=== PATIENT | male | born 1980 | race Caucasian/White ===

== ENCOUNTER 2017-11-13 04:08 | Inpatient (IN) | payer OTHER ==
[2017-11-13] MEDS ORDERED: NACL 0.9% 1000 ML 1,000 ML ONE ×2 (04:28→11:41)
[2017-11-13] MEDS ORDERED: ZOFRAN IV ONE (04:29)
[2017-11-13] MEDS ORDERED: NACL 0.9% 1000 ML 1,000 ML IV ONE (04:29)
[2017-11-13] MEDS ORDERED: PROTONIX IV ONE (04:30)
[2017-11-13] MEDS ORDERED: PROTONIX PO ONE (04:33)
--- NOTE | 2017-11-13 04:35 | Emergency Department Report ---
ED GI Bleed HPI - General Chief complaint: GI Bleed Stated complaint: VOINTING BLOOD Time Seen by Provider: 11/13/17 04:29 Source: family Mode of arrival: Wheelchair Limitations: Language Barrier - History of Present Illness Initial comments: Patient is 37 years old male with history of diabetes presented to the ER with active GI bleed. Patient is actively vomiting blood. Patient stated that he was seen in [place] and diagnosed with stomach virus. Patient stated that he continued to vomit and is recently R vomiting blood, coffee ground emesis. He denied any rectal bleeding or stool color change. When arrived to the ER his initial blood pressure 93/38. MD complaint: coffee ground emesis -: Sudden Location: epigastric Radiation: none Consistency: constant Associated Symptoms: abdominal pain, nausea, vomiting - Related Data Home Medications Medication Instructions Recorded Confirmed Last Taken No Known Home Medications [No 11/13/17 11/13/17 Unknown Reported Home Medications] Allergies Allergy/AdvReac Type Severity Reaction Status Date / Time No Known Allergies Allergy Verified 11/13/17 04:31 ED Review of Systems ROS: Stated complaint: VOINTING BLOOD Other details as noted in HPI Comment: All other systems reviewed and negative Constitutional: denies: chills, fever Respiratory: denies: cough, orthopnea Cardiovascular: denies: chest pain, palpitations, dyspnea on exertion, orthopnea , paroxysmal nocturnal dyspnea Gastrointestinal: abdominal pain, nausea, vomiting, hematemesis. denies: diarrhea, constipation, melena, hematochezia Neurological: denies: headache, weakness, numbness, paresthesias, confusion, abnormal gait ED Past Medical Hx - Past Medical History Previous Medical History?: Yes Hx Diabetes: Yes - Surgical History Past Surgical History?: No - Social History Smoking Status: Never Smoker Substance Use Type: None - Medications Home Medications: Home Medications Medication Instructions Recorded Confirmed Last Taken Type No Known Home Medications [No 11/13/17 11/13/17 Unknown History Reported Home Medications] ED Physical Exam - General Limitations: Language Barrier General appearance: alert, obtunded - Head Head exam: Present: atraumatic, normocephalic - Eye Eye exam: Present: normal appearance, PERRL - ENT ENT exam: Present: mucous membranes dry - Neck Neck exam: Present: normal inspection, full ROM. Absent: tenderness, meningismus, lymphadenopathy, thyromegaly - Respiratory Respiratory exam: Present: normal lung sounds bilaterally. Absent: respiratory distress, wheezes, rales, rhonchi, chest wall tenderness, accessory muscle use, decreased breath sounds, prolonged expiratory - Cardiovascular Cardiovascular Exam: Present: tachycardia. Absent: systolic murmur, diastolic murmur - GI/Abdominal GI/Abdominal exam: Present: soft, tenderness (epigastric tenderness), normal bowel sounds. Absent: distended, guarding, rebound, rigid, organomegaly, mass, bruit, pulsatile mass, hernia - Extremities Exam Extremities exam: Present: normal inspection, full ROM, normal capillary refill. Absent: tenderness, pedal edema, joint swelling, calf tenderness - Neurological Exam Neurological exam: Present: alert, oriented X3, CN II-XII intact, normal gait - Skin Skin exam: Present: warm, dry, intact ED Course Vital Signs 11/13/17 11/13/17 11/13/17 04:08 04:25 04:38 Temperature 98.3 F 98.3 F Pulse Rate 104 H 104 H Respiratory 22 18 22 Rate Blood Pressure 93/38 93/38 O2 Sat by Pulse 100 100 100 Oximetry 11/13/17 11/13/17 11/13/17 04:50 05:01 05:15 Temperature Pulse Rate 95 H 100 H 95 H Respiratory 15 20 18 Rate Blood Pressure O2 Sat by Pulse 100 100 100 Oximetry 11/13/17 11/13/17 11/13/17 05:30 05:45 06:00 Temperature Pulse Rate 116 H 98 H 98 H Respiratory 16 17 19 Rate Blood Pressure 122/44 114/47 103/52 O2 Sat by Pulse 100 100 100 Oximetry 11/13/17 11/13/17 11/13/17 06:08 06:15 06:17 Temperature 98.1 F Pulse Rate 97 H 102 H 103 H Respiratory 17 19 19 Rate Blood Pressure 113/40 103/52 103/52 O2 Sat by Pulse 100 100 100 Oximetry 11/13/17 11/13/17 11/13/17 06:19 06:21 06:22 Temperature Pulse Rate 105 H 108 H 105 H Respiratory 20 20 20 Rate Blood Pressure 103/52 103/52 94/40 O2 Sat by Pulse 100 99 100 Oximetry 11/13/17 11/13/17 11/13/17 06:23 06:25 06:27 Temperature Pulse Rate 105 H 105 H 105 H Respiratory 19 20 20 Rate Blood Pressure 94/40 108/43 108/43 O2 Sat by Pulse 100 99 100 Oximetry 11/13/17 11/13/17 11/13/17 06:29 06:30 06:31 Temperature Pulse Rate 97 H 98 H 95 H Respiratory 20 20 21 Rate Blood Pressure 108/43 102/41 102/41 O2 Sat by Pulse 100 100 100 Oximetry 11/13/17 11/13/17 11/13/17 06:33 06:41 06:50 Temperature 98.4 F 98.3 F Pulse Rate 102 H 109 H 83 Respiratory 20 17 14 Rate Blood Pressure 102/41 109/44 105/49 O2 Sat by Pulse 100 100 99 Oximetry 11/13/17 11/13/17 11/13/17 07:23 07:38 07:39 Temperature 98.3 F Pulse Rate 130 H 126 H 114 H Respiratory 20 20 22 Rate Blood Pressure 134/59 128/61 122/79 O2 Sat by Pulse 96 99 Oximetry 11/13/17 11/13/17 11/13/17 08:00 08:31 09:00 Temperature Pulse Rate 102 H 55 L 99 H Respiratory 19 14 16 Rate Blood Pressure 108/64 128/49 111/56 O2 Sat by Pulse 100 100 99 Oximetry 11/13/17 11/13/17 11/13/17 09:30 10:00 10:30 Temperature Pulse Rate 97 H 101 H 96 H Respiratory 19 17 16 Rate Blood Pressure 108/54 117/58 109/54 O2 Sat by Pulse 100 Oximetry 11/13/17 11/13/17 11/13/17 11:00 11:30 12:00 Temperature Pulse Rate 99 H 100 H 114 H Respiratory 18 18 22 Rate Blood Pressure 106/55 99/53 106/52 O2 Sat by Pulse 100 Oximetry 11/13/17 11/13/17 11/13/17 12:30 13:00 13:30 Temperature Pulse Rate 100 H 99 H 103 H Respiratory 19 16 16 Rate Blood Pressure 106/60 105/55 101/60 O2 Sat by Pulse 100 100 100 Oximetry 11/13/17 11/13/17 11/13/17 14:00 14:30 15:00 Temperature Pulse Rate 98 H 100 H 105 H Respiratory 18 17 16 Rate Blood Pressure 100/58 106/50 96/51 O2 Sat by Pulse 98 100 Oximetry 11/13/17 11/13/17 11/13/17 15:31 16:00 16:30 Temperature Pulse Rate 100 H 98 H 107 H Respiratory 16 16 17 Rate Blood Pressure 103/59 103/60 107/58 O2 Sat by Pulse 100 99 96 Oximetry 11/13/17 11/13/17 11/13/17 17:00 17:11 17:21 Temperature Pulse Rate 85 89 100 H Respiratory 17 17 16 Rate Blood Pressure 113/53 106/40 99/45 O2 Sat by Pulse 100 99 88 Oximetry 11/13/17 11/13/17 11/13/17 17:30 17:40 17:50 Temperature Pulse Rate 81 76 80 Respiratory 18 16 16 Rate Blood Pressure 113/55 114/57 112/57 O2 Sat by Pulse 100 100 99 Oximetry 11/13/17 18:00 Temperature Pulse Rate 76 Respiratory 12 Rate Blood Pressure 111/59 O2 Sat by Pulse 100 Oximetry - Reevaluation(s) Reevaluation #1: 11/13/17 05:05: I discussed the patient is Dr. Hogan from GI, he was informed about the patient and his current hemoglobin and blood pressure. Dr. Hogan is on his way for emergency endoscopy. ED Medical Decision Making - Lab Data Result diagrams: 11/13/17 13:09 11/13/17 Unknown - Medical Decision Making I discussed the patient is Dr. Caro, he advised to admit patient to ICU. Critical Care Time: Yes Critical care time in (mins) excluding proc time.: 45 Critical care attestation.: If time is entered above; I have spent that time in minutes in the direct care of this critically ill patient, excluding procedure time. ED Disposition Clinical Impression: GI bleed, Hypotension due to blood loss Disposition: OP ADMIT IP TO THIS HOSP Is pt being admited?: Yes Condition: Stable
[2017-11-13 04:52] LABS: Basophils % (Auto) 0.4 % (0.0-1.8); Hemoglobin 6.2 gm/dl (11.8-15.2); Lymphocytes % (Auto) 15.2 % (13.4-35.0); Monocytes # (Auto) 0.6 K/mm3 (0.0-0.8); Monocytes % (Auto) 4.8 % (0.0-7.3)
[2017-11-13 05:04] LABS: INR 1.86 (0.87-1.13)
[2017-11-13] MEDS: PROTONIX 80 MG in NACL 0.9% 100 ML IV SCH ×2 (05:04→15:36)
[2017-11-13 05:05] LABS: Albumin 2.1 g/dL (3.9-5); Calcium 7.3 mg/dL (8.4-10.2); Partial Thromboplastin Time 36.3 Sec. (24.2-36.6)
[2017-11-13] MEDS ORDERED: NACL 0.9% 500 ML 500 ML IV ONE (05:05)
[2017-11-13 05:11] LABS: Hematocrit 23.3 % (35.5-45.6); Mean Corpuscular HGB Conc 29 % (32-34); Mean Corpuscular Hemoglobin 25 pg (28-32); Mean Corpuscular Volume 85 fl (84-94); Platelet Count 154 K/mm3 (140-440); Red Blood Count 2.73 M/mm3 (3.65-5.03); Red Cell Distribution Width 20.7 % (13.2-15.2)
[2017-11-13] MEDS ORDERED: VITAMIN K (ADULT ONLY) SUB-Q ONE (05:23)
--- NOTE | 2017-11-13 05:52 | XRay Report ---
FINAL REPORT EXAM: XR CHEST 1V AP HISTORY: GI Bleed. TECHNIQUE: A single frontal portable radiograph of the chest was obtained. No prior studies are available for comparison. FINDINGS: The cardiac silhouette and mediastinum are within normal limits. There are low lung volumes, with crowding of the vascular and interstitial markings. The lungs are clear bilaterally, without focal infiltrate or effusion. There is no pneumothorax. No significant osseous abnormalities are identified. IMPRESSION: Low lung volumes, with no focal infiltrate or effusion.
--- NOTE | 2017-11-13 06:03 | Anesthesia Consultation ---
Anesthesia Consult and Med Hx Date of service: 11/13/17 - Airway Anesthetic Teeth Evaluation: Good ROM Head & Neck: Adequate Mental/Hyoid Distance: Adequate Mallampati Class: Class III Intubation Access Assessment: Probably Good - Pulmonary Exam CTA: Yes - Cardiac Exam Cardiac Exam: RRR - Pre-Operative Health Status ASA Pre-Surgery Classification: ASA3 Proposed Anesthetic Plan: General, MAC - Pre-Anesthesia Comment Pre-Anesthesia Comments: 37y M with h/o recently diagnosed NIDDM2, who presented with bloody emesis and hypotension now scheduled for upper endoscopy. Hgb 6.2, Plt 154. KARLOS and Lactate of 10 - Pulmonary Hx Smoking: No Hx Asthma: No SOB: No - Cardiovascular System Hx Hypertension: No Hx Heart Attack/AMI: No Hx Angina: No - Central Nervous System Hx Seizures: No CVA: No - Endocrine Hx Liver Disease: No Hx Non-Insulin Dependent Diabetes: Yes
--- NOTE | 2017-11-13 06:04 | Anesthesia Day of Surgery ---
Anesthesia Day of Surgery - Day of Surgery Patient Examined: Yes Patient H&P Reviewed: Yes Patient is NPO: No (active GI bleed) Beta Blockers: No Cardiac Clearance: Yes Pulmonary Clearance: Yes Bryan's Test: N/A
[2017-11-13] MEDS ORDERED: VITAMIN K (ADULT ONLY) ONE (06:09)
[2017-11-13] MEDS ORDERED: WATER FOR IRRIG STERILE IR ONE (06:32)
[2017-11-13] MEDS ORDERED: DIPRIVAN 10 MG/ML IV ONE (06:35)
[2017-11-13] MEDS ORDERED: VERSED ONE (06:35)
[2017-11-13] MEDS ORDERED: AMIDATE IV ONE (06:35)
[2017-11-13] MEDS ORDERED: XYLOCAINE CARDIAC IV ONE (06:37)
[2017-11-13] MEDS ORDERED: SUBLIMAZE ONE (07:05)
[2017-11-13] MEDS ORDERED: NEOSTIGMINE ONE (07:19)
[2017-11-13] MEDS ORDERED: ROBINUL ONE (07:19)
--- NOTE | 2017-11-13 07:22 | History and Physical Report ---
History of Present Illness Date of examination: 11/13/17 Date of admission: 11/13/17 05:41 Chief complaint: Vomiting blood History of present illness: The patient is a 37 year old male with a history of DM who presented to the ER with new onset emesis of BRB starting this AM. He denied any antecedent history of PUD, liver disease, abdominal pain or weight loss. He states that he used to drink beer off and on but he quit drinking once he developed an episode of bloody vomitus about 2 months ago. Patient did not seek any medical attention that time. He lives in [place] and visiting friends/ family in [place]. He was hypotensive on presentation and found to have a Hgb of 6.2, INR of 1.8 with mildly elevated LFTs. No history of melena. He is getting admitted for further evaluation and management. He'll be taking to the GI lab for emergent EGD. Past History Past Medical History: diabetes Past Surgical History: No surgical history Social history: no significant social history. denies: smoking, admits alcohol abuse but states he quit about 2 months ago Family history: Mother has history of hypertension and diabetes Review of System: Constitutional: no fever, no chills, no weight loss Ears, eyes, nose, mouth and throat: no nasal congestion, no nasal discharge, no sinus pressure, no vision change, no red eye. Neck: No neck pain or rigidity. Cardiovascular: No chest pain, no orthopnea, no palpitations, no leg swelling Respiratory: No shortness of breath, no cough, no congestion, no wheezing Gastrointestinal: no abdominal pain, + nausea, + bloody vomiting Genitourinary : no dysuria, no hematuria Musculoskeletal: no joint swelling or muscle ache Integumentary: no rash, no pruritis Neurological: no parathesias, no numbness, no tingling Endocrine: no cold or heat intolerance, no polyuria or polydipsia Hematologic/Lymphatic: no easy bruising, no easy bleeding, no gland swelling Allergic/Immunologic: no urticaria, no angioedema. Medications and Allergies Allergies Allergy/AdvReac Type Severity Reaction Status Date / Time No Known Allergies Allergy Verified 11/13/17 04:31 Home Medications Medication Instructions Recorded Confirmed Last Taken Type No Known Home Medications [No 11/13/17 11/13/17 Unknown History Reported Home Medications] Active Meds: Active Medications Pantoprazole Sodium 80 mg/ (Sodium Chloride) 100 mls @ 10 mls/hr IV Q10H KATHRYN Last Admin: 11/13/17 05:04 Dose: 8 mg/hr, 10 mls/hr Octreotide Acetate 500 mcg/ (Sodium Chloride) 101 mls @ 5.05 mls/hr IV TITR KATHRYN ; Protocol Exam - Physical Exam Narrative exam: GENERAL: well-developed and well-nourished male lying on bed appeared to be in no discomfort. HEENT: Normocephalic. Atraumatic. No conjunctival congestion or icterus. Patient has moist mucous membranes. NECK: Supple. Trachea midline. CHEST/LUNGS: Clear to auscultated bilaterally, breathing nonlabored. No wheezes crackles or rhonchi. HEART/CARDIOVASCULAR: Regular in rate and rhythm. S1 and S2 positive. ABDOMEN: Abdomen is soft, nontender. Patient has normal bowel sounds. SKIN: There is no rash. Warm and dry. NEURO: No focal motor deficit. Follows command. MUSCULOSKELETAL: No joint effusion or tenderness. EXTRIMITY: No edema, no cyanosis or clubbing. PSYCH: Cooperative. - Constitutional Vitals: Temp Pulse Resp BP Pulse Ox 98.4 F 109 H 17 109/44 100 11/13/17 06:41 11/13/17 06:41 11/13/17 06:41 11/13/17 06:41 11/13/17 06:41 Results - Labs CBC & Chem 7: 11/13/17 13:09 11/13/17 Unknown Labs: Abnormal lab results 11/13/17 11/13/17 11/13/17 Range/Units 04:20 04:20 Unknown WBC 12.9 H (4.5-11.0) K/mm3 RBC 2.73 L (3.65-5.03) M/mm3 Hgb 6.2 L (11.8-15.2) gm/dl Hct 23.3 L (35.5-45.6) % MCH 25 L (28-32) pg MCHC 29 L (32-34) % RDW 20.7 H (13.2-15.2) % Seg Neutrophils % 79.6 H (40.0-70.0) % Seg Neutrophils # 10.2 H (1.8-7.7) K/mm3 PT 22.6 H (12.2-14.9) Sec. INR 1.86 H (0.87-1.13) Sodium (137-145) mmol/L Potassium (3.6-5.0) mmol/L Carbon Dioxide (22-30) mmol/L BUN (9-20) mg/dL Creatinine (0.8-1.5) mg/dL Glucose (75-100) mg/dL Lactic Acid (0.7-2.0) mmol/L Calcium (8.4-10.2) mg/dL AST (5-40) units/L ALT (7-56) units/L Alkaline Phosphatase (35-129) units/L Total Protein (6.3-8.2) g/dL Albumin (3.9-5) g/dL Crossmatch See Detail 11/13/17 11/13/17 Range/Units Unknown Unknown WBC (4.5-11.0) K/mm3 RBC (3.65-5.03) M/mm3 Hgb (11.8-15.2) gm/dl Hct (35.5-45.6) % MCH (28-32) pg MCHC (32-34) % RDW (13.2-15.2) % Seg Neutrophils % (40.0-70.0) % Seg Neutrophils # (1.8-7.7) K/mm3 PT (12.2-14.9) Sec. INR (0.87-1.13) Sodium 133 L (137-145) mmol/L Potassium 5.1 H (3.6-5.0) mmol/L Carbon Dioxide 13 L (22-30) mmol/L BUN 34 H (9-20) mg/dL Creatinine 1.8 H (0.8-1.5) mg/dL Glucose 240 H (75-100) mg/dL Lactic Acid 10.30 H* (0.7-2.0) mmol/L Calcium 7.3 L (8.4-10.2) mg/dL AST 69 H (5-40) units/L ALT 69 H (7-56) units/L Alkaline Phosphatase 141 H (35-129) units/L Total Protein 5.7 L (6.3-8.2) g/dL Albumin 2.1 L (3.9-5) g/dL Crossmatch - Imaging and Cardiology Chest x-ray: report reviewed (no acute infiltrates) Assessment and Plan Acute GI bleed - Likely from esophageal varices versus peptic ulcer disease - Patient is going to get EGD emergently, consulted GI - We'll monitor H&H every 8 hour - Continue IV fluid hydration and packed RBC transfusion - We'll continue on octreotide drip and Protonix drip Acute blood loss anemia - Hemoglobin 6.5 on admission - We'll transfuse 2 units of packed RBC - For now will monitor the patient in ICU Remote history of alcohol abuse - We'll place on folate and thiamine Diabetes mellitus type 2 - We'll continue sliding scale of insulin for now, we'll check A1c Acute renal failure, could be vasomotor nephropathy - Continue gentle hydration for now - Monitor renal function, mild right upper toxin, consult nephrology Hyperkalemia, likely from renal failure - We'll repeat BMP, a persistently elevated will order hyperkalemia cocktail Elevated LFT - Could be from history of alcohol abuse - Hepatic panel ordered this morning was normal DVT prophylaxis, with SCD The high probability of a clinically significant, sudden or life threatening deterioration of the system(s) required my full and direct attention, intervention and personal management. The aggregate critical care time was [45] minutes. This time is in addition to time spent performing reported procedures but includes the following: [x] Data Review and interpretation [x] Patient assessment and monitoring of vital signs [x] Documentation [x] Medication orders and management
--- NOTE | 2017-11-13 07:26 | Gastroenterology Consultation ---
History of Present Illness - Reason for Consult Consult date: 11/13/17 Massive UGI bleed Requesting physician: ROSA JANE - History of Present Illness The patient is a 37 year old male with a history of DM who presented to the ER with new onset emesis of BRB starting this AM. He denied any antecedent history of PUD, liver disease, prior bleeding, alcohol use, abdominal pain or weight loss. He was hypotensive on presentation and found to have a Hgb of 6.2, INR of 1.8 with mildly elevated LFTs. No history of melena. Past History Past Medical History: diabetes Past Surgical History: No surgical history Social history: no significant social history. denies: smoking, alcohol abuse Family history: no significant family history Medications and Allergies Allergies Allergy/AdvReac Type Severity Reaction Status Date / Time No Known Allergies Allergy Verified 11/13/17 04:31 Active Meds: Active Medications Pantoprazole Sodium 80 mg/ (Sodium Chloride) 100 mls @ 10 mls/hr IV Q10H KATHRYN Last Admin: 11/13/17 05:04 Dose: 8 mg/hr, 10 mls/hr Octreotide Acetate 500 mcg/ (Sodium Chloride) 101 mls @ 5.05 mls/hr IV TITR KATHRYN ; Protocol Review of Systems - Review of Systems Constitutional: no weight loss, no weight gain, no fever, no chills Eyes: no change in vision Ears, Nose, Throat: no decreased hearing, no difficulty swallowing, no epistaxis Breasts: deferred Cardiovascular: no chest pain, no rapid/irregular heart beat, no shortness of breath, no syncope Respiratory: no cough, no shortness of breath, no wheezing Gastrointestinal: nausea, vomiting, hematemesis, no abdominal pain, no diarrhea , no constipation, no BRBPR, no melena, no hematochezia, no jaundice Rectal: no pain Male Genitourinary: deferred Musculoskeletal: no gait dysfunction, no joint pain, no muscle pain Integumentary: no deferred, no rash, no pruritis, no jaundice Neurological: no paralysis, no weakness Psychiatric: no anxiety Endocrine: no cold intolerance, no heat intolerance Hematologic/Lymphatic: no easy bruising, no easy bleeding Allergic/Immunologic: no wheezing Exam - Constitutional Vital Signs: Temp Pulse Resp BP Pulse Ox 98.4 F 109 H 17 109/44 100 11/13/17 06:41 11/13/17 06:41 11/13/17 06:41 11/13/17 06:41 11/13/17 06:41 General appearance: no acute distress, well-nourished, other (mildly somnolent but arousable and answers appropriately) - EENT Eyes: PERRL ENT: hearing intact, clear oral mucosa, dentition normal - Neck Neck: supple, normal ROM, no masses or JVD - Respiratory Respiratory effort: normal Respiratory: bilateral: CTA - Breasts Breasts: deferred - Cardiovascular Rhythm: regular Heart Sounds: Present: S1 & S2. Absent: gallop, rub Extremities: pulses intact, No edema, normal color, Full ROM - Gastrointestinal General gastrointestinal: Present: soft, non-tender, non-distended, normal bowel sounds. Absent: hepatomegaly, splenomegaly, mass Rectal Exam: deferred - Genitourinary Male Genitourinary: deferred - Integumentary Integumentary: Present: clear, warm, dry - Musculoskeletal Musculoskeletal: normal - Neurologic Neurological: alert and oriented x3, strength equal bilaterally - Psychiatric Psychiatric: appropriate mood/affect - Labs CBC & Chem 7: 11/13/17 04:20 11/13/17 Unknown Lab Results: Laboratory Results - last 24 hr 11/13/17 11/13/17 11/13/17 04:20 04:20 Unknown WBC 12.9 H RBC 2.73 L Hgb 6.2 L Hct 23.3 L MCV 85 MCH 25 L MCHC 29 L RDW 20.7 H Plt Count 154 Lymph % (Auto) 15.2 [place] % (Auto) 4.8 Eos % (Auto) 0.0 Baso % (Auto) 0.4 Lymph # 2.0 B[place] # 0.6 Eos # 0.0 Baso # 0.0 Seg Neutrophils % 79.6 H Seg Neutrophils # 10.2 H PT 22.6 H INR 1.86 H APTT 36.3 Sodium Potassium Chloride Carbon Dioxide Anion Gap BUN Creatinine Estimated GFR BUN/Creatinine Ratio Glucose Lactic Acid Calcium Total Bilirubin AST ALT Alkaline Phosphatase Total Protein Albumin Albumin/Globulin Ratio Lipase Blood Type O POSITIVE Antibody Screen Negative Crossmatch See Detail 11/13/17 11/13/17 Unknown Unknown WBC RBC Hgb Hct MCV MCH MCHC RDW Plt Count Lymph % (Auto) B[place] % (Auto) Eos % (Auto) Baso % (Auto) Lymph # Benton # Eos # Baso # Seg Neutrophils % Seg Neutrophils # PT INR APTT Sodium 133 L Potassium 5.1 H Chloride 99.3 Carbon Dioxide 13 L Anion Gap 26 BUN 34 H Creatinine 1.8 H Estimated GFR 43 BUN/Creatinine Ratio 19 Glucose 240 H Lactic Acid 10.30 H* Calcium 7.3 L Total Bilirubin 0.90 AST 69 H ALT 69 H Alkaline Phosphatase 141 H Total Protein 5.7 L Albumin 2.1 L Albumin/Globulin Ratio 0.6 Lipase 57 Blood Type Antibody Screen Crossmatch Assessment and Plan - Patient Problems (1) Coagulopathy Current Visit: Yes Status: Acute (2) GI bleed Current Visit: Yes Status: Acute Plan to address problem: Acute massive UGI bleed is present. Would be concerned about liver disease and a variceal bleed in this setting. Rule out PUD, Agata Sanchez tear, vascular lesions, eg Dieulafoy's. Emergent endoscopy in the OR with intubation is planned. I requested an octreotide drip be started as well as transfusions in advance of endoscopy. Thank you for asking me to participate in his care. (3) Hypotension due to blood loss Current Visit: Yes Status: Acute
[2017-11-13] MEDS ORDERED: QUELICIN ONE (07:30)
--- NOTE | 2017-11-13 07:42 | Operative Report ---
Operative Report Operative Report: Date of procedure: 11/13/2017 Procedure: Esophagogastroduodenoscopy with banding of esophageal varices 7 Preprocedure diagnosis: Massive upper GI bleed. Coagulopathy and elevated liver enzymes suspicious for cirrhosis. Post procedure diagnosis: Large esophageal varices with 1 varix with a tiny ulcer at the esophagogastric junction. Large cluster of gastric varices at the cardia. Portal hypertension gastropathy. Endoscopist: Dr. Tony Anesthesia: Gen. endotracheal anesthesia care per anesthesia department Medications: Propofol per anesthesia Estimated blood loss: 0 After careful discussion of the nature and purpose of the procedure as well as details the technique risks benefits and alternatives consent was obtained. The patient was placed in the left lateral decubitus position and medicated per anesthesia. The tip of the DynaPump EQ 570 video scope was passed per orum under direct vision into the esophagus and advanced into the stomach and descending duodenum. The descending duodenum the duodenal bulb and pylorus were symmetrical and normal. The scope was withdrawn into the stomach and the stomach then gently insufflated with air. The antrum was normal. The stomach was further insufflated and the scope was then retroflexed and partially withdrawn. The cardia, fundus, and body of the stomach were easily distensible.there was vascular congestion in the proximal stomach and a large cluster of varices at the cardia encompassing approximately 50% of the circumference. The scope was then withdrawn in the forward position. The esophagogastric junction was at 40 cm] 3-4+ varices were present in the distal half of the esophagus. A small ulcer was noted on the large varix present at the esophagogastric junction and this was felt to be suspicious for the bleeding point. There was no active bleeding however at the time of observation. The scope was transiently withdrawn and the banding device then loaded. The scope was then reintroduced per orum under direct vision into the esophagus and advanced to the esophagogastric junction. The varix with stigmata of bleeding was banded first followed by successive banding from EG junction to lower third of the esophagus with 7 bands overall. No bleeding was incurred. The procedure was was well tolerated and the patient was observed in recovery. Impressions: Large esophageal varices one with stigmata of bleeding. Multiple bands placed, 7 in total. Large cluster of varices at the gastric cardia. Portal hypertension gastropathy. Plan: Octreotide drip, ICU observation, PPI drip empirically. Evaluate the etiology of cirrhosis. Electronically signed: Guido Tony MD
[2017-11-13] MEDS ORDERED: NACL 0.9% 1000 ML 1,000 ML IV SCH (08:00)
[2017-11-13] MEDS: SandoSTATIN 500 MCG in NACL 0.9% 100 ML IV SCH ×2 (08:41→23:46)
--- NOTE | 2017-11-13 10:50 | Consultation ---
History of Present Illness - Reason for Consult Consult date: 11/13/17 acute renal failure, hyperkalemia, metabolic acidosis - History of Present Illness The patient is a 37 year old HM with history significant for DM type 2 who presented to the ER with h/o vomiting blood. Patient started vomiting when he started driving from [place], [place]. He continues to vomit even after reached [place]. Initially the vomitus partially digested food but later he noticed bright red blood. He had an episode of bloody vomitus about 2 months ago. He used to drink beer off and on but quit 1-2 months ago. On presentation his BP was 93/38, creatinine 1.8, bicarb 13, Lactate 10.3, Hb of 6.2, INR of 1.8 with mildly elevated LFTs. He denied any h/o PUD, Liver disease, Hepatitis, abdominal pain, melena, blood in the stool, hematuria, dysuria, kidney stone or syncope. Patient spoke very little Italian and history was obtained the foreign language interpreter. Past History Past Medical History: No medical history, diabetes Past Surgical History: No surgical history Social history: no significant social history. denies: smoking, alcohol abuse Family history: no significant family history Medications and Allergies Allergies Allergy/AdvReac Type Severity Reaction Status Date / Time No Known Allergies Allergy Verified 11/13/17 04:31 Home Medications Medication Instructions Recorded Confirmed Last Taken Type No Known Home Medications [No 11/13/17 11/13/17 Unknown History Reported Home Medications] Active Meds: Active Medications Pantoprazole Sodium 80 mg/ (Sodium Chloride) 100 mls @ 10 mls/hr IV Q10H KATHRYN Last Admin: 11/13/17 05:04 Dose: 8 mg/hr, 10 mls/hr Octreotide Acetate 500 mcg/ (Sodium Chloride) 101 mls @ 5.05 mls/hr IV TITR KATHRYN ; Protocol Last Admin: 11/13/17 08:41 Dose: 25 mcg/hr, 5.05 mls/hr Sodium Chloride (Nacl 0.9% 1000 Ml) 1,000 mls @ 100 mls/hr IV DIRECT KATHRYN Review of Systems Constitutional: no weight loss, no weight gain, no fever, no anorexia, no weakness Ears, nose, mouth and throat: no epistaxis Cardiovascular: no chest pain, no orthopnea, no edema, no syncope, no lightheadedness, no high blood pressure, no leg edema Respiratory: no cough, no hemoptysis, no shortness of breath Gastrointestinal: nausea, vomiting, hematemesis, no abdominal pain, no diarrhea , no melena, no jaundice Genitourinary Male: no dysuria, no hematuria, no kidney stones Integumentary: no rash, no jaundice Neurological: no paralysis, no weakness Exam - Vital Signs Vital signs: Vital Signs Temp Pulse Resp BP Pulse Ox 98.3 F 104 H 22 93/38 100 11/13/17 04:08 11/13/17 04:08 11/13/17 04:08 11/13/17 04:08 11/13/17 04:08 - General Appearance General appearance: well-developed, well-nourished, appears stated age, other ( no distress) EENT: ATNC, PERRL, mucous membranes dry, hearing intact, vision intact Neck: Present: neck supple, trachea midline Respiratory: Clear to Ascultation Heart: regular, S1S2 Gastrointestinal: Present: normoactive bowel sounds, distended. Absent: tenderness Integumentary: no rash, warm and dry Neurologic: no focal deficit, no asterixis, alert and oriented x3 Musculoskeletal: Present: other (no edema) Psychiatric: cooperative Results - Lab Results 11/14/17 04:45 11/14/17 04:45 Most recent lab results Calcium 7.3 mg/dL (8.4-10.2) L 11/13/17 Unknown - Image Kidney/bladder ultrasound: other Assessment and Plan 1. Acute kidney injury: Hemodynamic / Vasomotor KARLOS in the setting of volume depletion and hypotension. Continue IV fluids. Urine studies and Renal US ordered. 2. Hyperkalemia: Continue D5 NS. Monitor. 3. Volume depletion: Continue IV fluids. 4. Cirrhosis with variceal bleed: S/p banding. 5. Anemia: Serial H/H. D/w family members and answered all the questions.
[2017-11-13 13:26] LABS: Hematocrit 23.8 % (35.5-45.6); Hemoglobin 7.5 gm/dl (11.8-15.2); Mean Corpuscular HGB Conc 31 % (32-34); Mean Corpuscular Hemoglobin 27 pg (28-32); Mean Corpuscular Volume 86 fl (84-94); Platelet Count 109 K/mm3 (140-440); Red Blood Count 2.78 M/mm3 (3.65-5.03); Red Cell Distribution Width 19.2 % (13.2-15.2)
[2017-11-13] MEDS ORDERED: TYLENOL PR PRN (15:14)
[2017-11-13] MEDS ORDERED: D5W/0.45% NACL/KCL 20 MEQ 20 MEQ/1,000 ML BAG IV ONE (15:25)
[2017-11-13 15:31] LABS: Calcium 6.7 mg/dL (8.4-10.2)
[2017-11-13] MEDS ORDERED: D5W/NS W/KCL 20MEQ 20 MEQ/1,000 ML BAG IV SCH (17:00)
[2017-11-13] MEDS ORDERED: HumuLIN R ONE (17:11)
[2017-11-13] MEDS: HumuLIN R SUB-Q SCH (17:21)
[2017-11-13] MEDS ORDERED: D5W 0 ML IV ONE (17:51)
[2017-11-13 18:28] LABS: Bacteria,Urine 1+ /HPF (Negative); Bilirubin,Urine NEG (Negative); Blood,Urine NEG (Negative); Color,Urine Yellow (Yellow); Mucus,Urine FEW /HPF; Protein,Urine <15 mg/dL mg/dL (Negative); Urobilinogen,Urine < 2.0 mg/dL (<2.0)
--- NOTE | 2017-11-13 18:31 | Event Note ---
Date: 11/13/17 Rn reported that pt did not have any urine output - will place huffman and cont iv fluid repeat K level is 5.5 - will place on insulin 10 unit/50ml D50/ 2gm calcium gluconate/1 amp NaHCO3
[2017-11-13] MEDS: D5NS 1,000 ML IV SCH ×2 (18:41→23:49)
[2017-11-13 18:44] LABS: Creatinine,Urine 273.6 mg/dL (0.1-20.0)
[2017-11-13] MEDS ORDERED: SODIUM BICARBONATE IV ONE (19:00)
[2017-11-13] MEDS ORDERED: PROVENTIL IH ONE (19:00)
[2017-11-13] MEDS ORDERED: D50W (25GM) Syringe IV ONE (19:00)
[2017-11-13] MEDS ORDERED: HumuLIN R SUB-Q ONE (19:00)
[2017-11-13] MEDS ORDERED: CALCIUM GLUCONATE 2,000 MG in NACL 0.9% 100 ML IV ONE (19:26)
[2017-11-13 21:51] LABS: Hematocrit 22.7 % (35.5-45.6); Hemoglobin 7.3 gm/dl (11.8-15.2)
[2017-11-14] MEDS: HumuLIN R SUB-Q SCH ×5 (00:27→22:06)
[2017-11-14] MEDS: PROTONIX 80 MG in NACL 0.9% 100 ML IV SCH (00:44)
[2017-11-14 05:22] LABS: Basophils # (Auto) 0.1 K/mm3 (0.0-0.1); Basophils % (Auto) 0.7 % (0.0-1.8); Eosinophils % (Auto) 0.1 % (0.0-4.3); Hematocrit 22.2 % (35.5-45.6); Hemoglobin 7.1 gm/dl (11.8-15.2); Lymphocytes # (Auto) 1.5 K/mm3 (1.2-5.4); Lymphocytes % (Auto) 10.8 % (13.4-35.0); Mean Corpuscular HGB Conc 32 % (32-34); Mean Corpuscular Hemoglobin 27 pg (28-32); Mean Corpuscular Volume 84 fl (84-94); Monocytes # (Auto) 1.2 K/mm3 (0.0-0.8); Monocytes % (Auto) 8.4 % (0.0-7.3); Red Blood Count 2.63 M/mm3 (3.65-5.03); Red Cell Distribution Width 19.5 % (13.2-15.2)
[2017-11-14 05:41] LABS: Platelet Count 88 K/mm3 (140-440)
[2017-11-14 05:49] LABS: Alanine Aminotransferase 123 units/L (7-56); Albumin 1.8 g/dL (3.9-5); BUN/Creatinine Ratio 33; Blood Urea Nitrogen 40 mg/dL (9-20); Calcium 6.5 mg/dL (8.4-10.2); Hemolysis Index 2
--- NOTE | 2017-11-14 08:49 | Progress Note ---
Assessment and Plan 1. Acute kidney injury: Hemodynamic / Vasomotor KARLOS in the setting of volume depletion and hypotension. Renal function is improving. Continue IV fluids. Renal US pending. 2. Hyperkalemia: Improving. Continue D5 NS. Monitor. 3. Volume depletion: Continue IV fluids. 4. Lactic acidosis: Improving. 5. Cirrhosis with variceal bleed: S/p banding. 6. Anemia: Monitor. Subjective Date of service: 11/14/17 Interval history: Patient was seen and examined at the bedside. Objective - Vital Signs Vital signs: Vital Signs - 12hr 11/13/17 11/13/17 11/13/17 20:57 21:00 21:11 Temperature Pulse Rate 93 H 93 H 96 H Pulse Rate [ Bilateral Throughout] Pulse Rate [ Left Radial] Pulse Rate [ Right Radial] Respiratory 16 17 12 Rate Respiratory Rate [Abdomen] Respiratory Rate [Bilateral Throughout] Blood Pressure 114/60 114/60 O2 Sat by Pulse 98 100 99 Oximetry 11/13/17 11/13/17 11/13/17 21:21 21:31 21:41 Temperature Pulse Rate 83 92 H 100 H Pulse Rate [ 102 H Bilateral Throughout] Pulse Rate [ Left Radial] Pulse Rate [ Right Radial] Respiratory 14 19 14 Rate Respiratory Rate [Abdomen] Respiratory 16 Rate [Bilateral Throughout] Blood Pressure 114/60 114/60 114/60 O2 Sat by Pulse 99 99 99 Oximetry 11/13/17 11/13/17 11/13/17 21:51 22:00 22:11 Temperature Pulse Rate 85 114 H 99 H Pulse Rate [ Bilateral Throughout] Pulse Rate [ 99 H Left Radial] Pulse Rate [ 99 H Right Radial] Respiratory 19 18 18 Rate Respiratory 16 Rate [Abdomen] Respiratory Rate [Bilateral Throughout] Blood Pressure 114/60 112/89 112/89 O2 Sat by Pulse 98 91 98 Oximetry 11/13/17 11/13/17 11/13/17 22:21 22:31 22:41 Temperature Pulse Rate 98 H 93 H 114 H Pulse Rate [ Bilateral Throughout] Pulse Rate [ Left Radial] Pulse Rate [ Right Radial] Respiratory 17 19 19 Rate Respiratory Rate [Abdomen] Respiratory Rate [Bilateral Throughout] Blood Pressure 112/89 112/89 112/89 O2 Sat by Pulse 97 97 98 Oximetry 11/13/17 11/13/17 11/13/17 22:51 23:00 23:11 Temperature Pulse Rate 104 H 97 H 98 H Pulse Rate [ Bilateral Throughout] Pulse Rate [ Left Radial] Pulse Rate [ Right Radial] Respiratory 19 19 17 Rate Respiratory Rate [Abdomen] Respiratory Rate [Bilateral Throughout] Blood Pressure 112/89 114/62 114/62 O2 Sat by Pulse 99 100 97 Oximetry 11/13/17 11/13/17 11/13/17 23:21 23:23 23:26 Temperature 97.7 F Pulse Rate 103 H 108 H Pulse Rate [ Bilateral Throughout] Pulse Rate [ Left Radial] Pulse Rate [ Right Radial] Respiratory 19 20 Rate Respiratory Rate [Abdomen] Respiratory Rate [Bilateral Throughout] Blood Pressure 114/62 114/62 114/62 O2 Sat by Pulse 98 97 Oximetry 11/13/17 11/13/17 11/13/17 23:31 23:41 23:51 Temperature Pulse Rate 101 H 103 H 124 H Pulse Rate [ Bilateral Throughout] Pulse Rate [ 103 H Left Radial] Pulse Rate [ 103 H Right Radial] Respiratory 17 18 19 Rate Respiratory Rate [Abdomen] Respiratory Rate [Bilateral Throughout] Blood Pressure 114/62 114/62 114/62 O2 Sat by Pulse 96 98 97 Oximetry 11/14/17 11/14/17 11/14/17 00:00 00:11 00:21 Temperature 98.3 F Pulse Rate 98 H 104 H 105 H Pulse Rate [ Bilateral Throughout] Pulse Rate [ Left Radial] Pulse Rate [ Right Radial] Respiratory 18 20 18 Rate Respiratory Rate [Abdomen] Respiratory Rate [Bilateral Throughout] Blood Pressure 119/63 119/63 119/63 O2 Sat by Pulse 97 99 Oximetry 11/14/17 11/14/17 11/14/17 00:31 00:41 00:50 Temperature Pulse Rate 123 H 113 H 126 H Pulse Rate [ Bilateral Throughout] Pulse Rate [ Left Radial] Pulse Rate [ Right Radial] Respiratory 20 19 18 Rate Respiratory Rate [Abdomen] Respiratory Rate [Bilateral Throughout] Blood Pressure 119/63 119/63 O2 Sat by Pulse 99 98 97 Oximetry 11/14/17 11/14/17 11/14/17 01:00 01:11 01:21 Temperature Pulse Rate 110 H 110 H 107 H Pulse Rate [ Bilateral Throughout] Pulse Rate [ Left Radial] Pulse Rate [ Right Radial] Respiratory 20 20 22 Rate Respiratory Rate [Abdomen] Respiratory Rate [Bilateral Throughout] Blood Pressure 116/63 119/63 119/63 O2 Sat by Pulse 98 97 97 Oximetry 11/14/17 11/14/17 11/14/17 01:31 01:41 01:51 Temperature Pulse Rate 111 H 113 H 114 H Pulse Rate [ Bilateral Throughout] Pulse Rate [ Left Radial] Pulse Rate [ Right Radial] Respiratory 21 21 16 Rate Respiratory Rate [Abdomen] Respiratory Rate [Bilateral Throughout] Blood Pressure 119/63 119/63 119/63 O2 Sat by Pulse 98 98 98 Oximetry 11/14/17 11/14/17 11/14/17 02:00 02:11 02:21 Temperature Pulse Rate 120 H 119 H 112 H Pulse Rate [ Bilateral Throughout] Pulse Rate [ 120 H Left Radial] Pulse Rate [ 120 H Right Radial] Respiratory 22 19 15 Rate Respiratory Rate [Abdomen] Respiratory Rate [Bilateral Throughout] Blood Pressure 106/41 106/41 106/41 O2 Sat by Pulse 98 95 97 Oximetry 11/14/17 11/14/17 11/14/17 02:31 02:41 02:51 Temperature Pulse Rate 111 H 109 H 115 H Pulse Rate [ Bilateral Throughout] Pulse Rate [ Left Radial] Pulse Rate [ Right Radial] Respiratory 23 18 21 Rate Respiratory Rate [Abdomen] Respiratory Rate [Bilateral Throughout] Blood Pressure 106/41 106/41 106/41 O2 Sat by Pulse 98 97 96 Oximetry 11/14/17 11/14/17 11/14/17 03:00 03:11 03:21 Temperature Pulse Rate 111 H 114 H 106 H Pulse Rate [ Bilateral Throughout] Pulse Rate [ Left Radial] Pulse Rate [ Right Radial] Respiratory 20 22 21 Rate Respiratory Rate [Abdomen] Respiratory Rate [Bilateral Throughout] Blood Pressure 104/56 104/56 104/56 O2 Sat by Pulse 96 97 Oximetry 11/14/17 11/14/17 11/14/17 03:31 03:41 03:51 Temperature Pulse Rate 111 H 118 H 112 H Pulse Rate [ Bilateral Throughout] Pulse Rate [ Left Radial] Pulse Rate [ Right Radial] Respiratory 20 21 19 Rate Respiratory Rate [Abdomen] Respiratory Rate [Bilateral Throughout] Blood Pressure 104/56 104/56 104/56 O2 Sat by Pulse 93 91 94 Oximetry 11/14/17 11/14/17 11/14/17 04:00 04:11 04:21 Temperature 99.0 F Pulse Rate 110 H 108 H 111 H Pulse Rate [ Bilateral Throughout] Pulse Rate [ 103 H Left Radial] Pulse Rate [ 103 H Right Radial] Respiratory 19 20 17 Rate Respiratory Rate [Abdomen] Respiratory Rate [Bilateral Throughout] Blood Pressure 106/48 106/48 106/48 O2 Sat by Pulse 97 96 95 Oximetry 11/14/17 11/14/17 11/14/17 04:31 04:41 04:51 Temperature Pulse Rate 119 H 122 H 107 H Pulse Rate [ Bilateral Throughout] Pulse Rate [ Left Radial] Pulse Rate [ Right Radial] Respiratory 23 18 15 Rate Respiratory Rate [Abdomen] Respiratory Rate [Bilateral Throughout] Blood Pressure 106/48 106/48 106/48 O2 Sat by Pulse 96 95 97 Oximetry 11/14/17 11/14/17 11/14/17 05:00 05:11 05:21 Temperature Pulse Rate 100 H 125 H 109 H Pulse Rate [ Bilateral Throughout] Pulse Rate [ Left Radial] Pulse Rate [ Right Radial] Respiratory 18 21 21 Rate Respiratory Rate [Abdomen] Respiratory Rate [Bilateral Throughout] Blood Pressure 105/52 105/52 105/52 O2 Sat by Pulse 96 91 96 Oximetry 11/14/17 11/14/17 11/14/17 05:31 05:41 05:49 Temperature Pulse Rate 101 H 105 H Pulse Rate [ Bilateral Throughout] Pulse Rate [ 99 H Left Radial] Pulse Rate [ 99 H Right Radial] Respiratory 19 18 20 Rate Respiratory Rate [Abdomen] Respiratory Rate [Bilateral Throughout] Blood Pressure 105/52 105/52 O2 Sat by Pulse 89 99 Oximetry - General Appearance General appearance: well-developed, well-nourished, appears stated age, other ( no distress) EENT: ATNC, PERRL, mucous membranes dry, hearing intact, vision intact Neck: supple Respiratory: Present: Clear to Ascultation Cardiology: regular, S1S2, no murmurs Gastrointestinal: normoactive bowel sounds, no tenderness, distended Integumentary: no rash, warm and dry Neurologic: no focal deficit, no asterixis Musculoskeletal: other (no edema) Psychiatric: cooperative - Lab 11/14/17 04:45 11/14/17 04:45 Most recent lab results Calcium 6.5 mg/dL (8.4-10.2) L 11/14/17 04:45 Phosphorus 2.30 mg/dL (2.5-4.5) L 11/14/17 04:45 Magnesium 1.40 mg/dL (1.7-2.3) L 11/14/17 04:45 Urine Creatinine 273.6 mg/dL (0.1-20.0) H 11/13/17 18:03 Urine Sodium 11 mmol/L 11/13/17 18:03
--- NOTE | 2017-11-14 09:12 | Consultation ---
History of Present Illness Consult date: 11/14/17 Requesting physician: RICO WELSH Reason for consult: other (Acute GI Bleed) Past History Past Medical History: diabetes Past Surgical History: No surgical history Social history: no significant social history. denies: smoking, alcohol abuse Family history: no significant family history Medications and Allergies Allergies Allergy/AdvReac Type Severity Reaction Status Date / Time No Known Allergies Allergy Verified 11/13/17 04:31 Home Medications Medication Instructions Recorded Confirmed Last Taken Type No Known Home Medications [No 11/13/17 11/13/17 Unknown History Reported Home Medications] Active Meds: Active Medications Acetaminophen (Tylenol) 650 mg RI Q6H PRN PRN Reason: Pain, Mild (1-3) Pantoprazole Sodium 80 mg/ (Sodium Chloride) 100 mls @ 10 mls/hr IV Q10H KATHRYN Last Admin: 11/14/17 00:44 Dose: 8 mg/hr, 10 mls/hr Octreotide Acetate 500 mcg/ (Sodium Chloride) 101 mls @ 5.05 mls/hr IV TITR KATHRYN ; Protocol Last Admin: 11/13/17 23:46 Dose: 25 mcg/hr, 5.05 mls/hr Dextrose/Sodium Chloride (D5ns) 1,000 mls @ 125 mls/hr IV DIRECT KATHRYN Last Admin: 11/13/17 23:49 Dose: 125 mls/hr Insulin Human Regular (Humulin R) 0 units SUB-Q ACHS KATHRYN; Protocol Last Admin: 11/14/17 00:27 Dose: Not Given Physical Examination Vital signs: Vital Signs Temp Pulse Resp BP Pulse Ox 98.3 F 104 H 22 93/38 100 11/13/17 04:08 11/13/17 04:08 11/13/17 04:08 11/13/17 04:08 11/13/17 04:08 Results - Laboratory Findings CBC and BMP: 11/14/17 04:45 11/14/17 04:45 PT/INR, D-dimer PT 22.6 Sec. (12.2-14.9) H 11/13/17 Unknown INR 1.86 (0.87-1.13) H 11/13/17 Unknown Abnormal lab findings: Abnormal Labs 11/13/17 11/13/17 11/13/17 04:20 04:20 09:22 WBC 12.9 H RBC 2.73 L Hgb 6.2 L Hct 23.3 L MCH 25 L MCHC 29 L RDW 20.7 H Plt Count Lymph % (Auto) [place] % (Auto) [place] # Seg Neutrophils % 79.6 H Seg Neutrophils # 10.2 H PT INR Sodium Potassium Carbon Dioxide BUN Creatinine Glucose POC Glucose 231 H Lactic Acid Calcium Phosphorus Magnesium Total Bilirubin AST ALT Alkaline Phosphatase Total Protein Albumin Urine Creatinine Crossmatch See Detail 11/13/17 11/13/17 11/13/17 13:09 14:50 16:44 WBC 16.5 H RBC 2.78 L Hgb 7.5 L Hct 23.8 L MCH 27 L MCHC 31 L RDW 19.2 H Plt Count 109 L Lymph % (Auto) [place] % (Auto) [place] # Seg Neutrophils % Seg Neutrophils # PT INR Sodium 133 L Potassium 5.5 H Carbon Dioxide 19 L BUN 40 H Creatinine Glucose 161 H POC Glucose 155 H Lactic Acid Calcium 6.7 L Phosphorus Magnesium Total Bilirubin AST ALT Alkaline Phosphatase Total Protein Albumin Urine Creatinine Crossmatch 11/13/17 11/13/17 11/13/17 18:03 21:31 21:32 WBC RBC Hgb 7.3 L Hct 22.7 L MCH MCHC RDW Plt Count Lymph % (Auto) [place] % (Auto) [place] # Seg Neutrophils % Seg Neutrophils # PT INR Sodium Potassium Carbon Dioxide BUN Creatinine Glucose POC Glucose 132 H Lactic Acid Calcium Phosphorus Magnesium Total Bilirubin AST ALT Alkaline Phosphatase Total Protein Albumin Urine Creatinine 273.6 H Crossmatch 11/13/17 11/13/17 11/13/17 Unknown Unknown Unknown WBC RBC Hgb Hct MCH MCHC RDW Plt Count Lymph % (Auto) [place] % (Auto) [place] # Seg Neutrophils % Seg Neutrophils # PT 22.6 H INR 1.86 H Sodium 133 L Potassium 5.1 H Carbon Dioxide 13 L BUN 34 H Creatinine 1.8 H Glucose 240 H POC Glucose Lactic Acid 10.30 H* Calcium 7.3 L Phosphorus Magnesium Total Bilirubin AST 69 H ALT 69 H Alkaline Phosphatase 141 H Total Protein 5.7 L Albumin 2.1 L Urine Creatinine Crossmatch 11/14/17 11/14/17 11/14/17 04:45 04:45 09:09 WBC 13.7 H RBC 2.63 L Hgb 7.1 L Hct 22.2 L MCH 27 L MCHC RDW 19.5 H Plt Count 88 L Lymph % (Auto) 10.8 L [place] % (Auto) 8.4 H [place] # 1.2 H Seg Neutrophils % 80.0 H Seg Neutrophils # 11.0 H PT INR Sodium Potassium 5.1 H Carbon Dioxide 19 L BUN 40 H Creatinine Glucose 206 H POC Glucose 251 H Lactic Acid Calcium 6.5 L Phosphorus 2.30 L Magnesium 1.40 L Total Bilirubin 1.30 H AST 129 H ALT 123 H Alkaline Phosphatase Total Protein 4.7 L Albumin 1.8 L Urine Creatinine Crossmatch
[2017-11-14] MEDS ORDERED: MAGNESIUM SULFATE 4GM/100ML 4 GM/100 ML BAG IV ONE (10:00)
[2017-11-14] MEDS ORDERED: SODIUM PHOSPHATE 30 MMOL in NACL 0.9% 500 ML 500 ML IV ONE (10:00)
[2017-11-14] MEDS ORDERED: PROTONIX 80 MG in NACL 0.9% 100 ML IV SCH (10:00)
--- NOTE | 2017-11-14 10:31 | Progress Note ---
Assessment and Plan Acute GI bleed - likely from esophageal varices and gastric varices - s/p EGD emergently by GI on 03/15 and banding - EGD showed Large esophageal varices with 1 varix with a tiny ulcer at the esophagogastric junction. Large cluster of gastric varices at the cardia. Portal hypertension gastropathy. - We'll monitor H&H every 8 hour - Continue IV fluid hydration and packed RBC transfusion as needed for Hb <7 - We'll continue on octreotide drip for 48h Acute blood loss anemia - Hemoglobin 6.5 on admission - s/p 2 units of packed RBC trnafusion - For now will monitor the patient in ICU - will transfuse one more unit as hb 6.9 today Remote history of alcohol abuse - We'll place on folate and thiamine Diabetes mellitus type 2 - We'll continue sliding scale of insulin for now, A1c 5.2 Acute renal failure, could be vasomotor nephropathy, improved - Continue gentle hydration for now - Monitor renal function, avoid nephrotoxin, consulted nephrology Hyperkalemia, likely from renal failure - slightly improved today Elevated LFT - Could be from history of alcohol abuse - Hepatitis panel ordered and was normal DVT prophylaxis, with SCD The high probability of a clinically significant, sudden or life threatening deterioration of the system(s) required my full and direct attention, intervention and personal management. The aggregate critical care time was [45] minutes. This time is in addition to time spent performing reported procedures but includes the following: [x] Data Review and interpretation [x] Patient assessment and monitoring of vital signs [x] Documentation [x] Medication orders and management Physical exam: GENERAL: well-developed and well-nourished male lying on bed appeared to be in no discomfort. HEENT: Normocephalic. Atraumatic. No conjunctival congestion or icterus. Patient has moist mucous membranes. NECK: Supple. Trachea midline. CHEST/LUNGS: Clear to auscultated bilaterally, breathing nonlabored. No wheezes crackles or rhonchi. HEART/CARDIOVASCULAR: Regular in rate and rhythm. S1 and S2 positive. ABDOMEN: Abdomen is soft, nontender. Patient has normal bowel sounds. SKIN: There is no rash. Warm and dry. NEURO: No focal motor deficit. Follows command. MUSCULOSKELETAL: No joint effusion or tenderness. EXTRIMITY: No edema, no cyanosis or clubbing. PSYCH: Cooperative. Subjective Date of service: 11/14/17 Interval history: Pt seen and examined no further Bloody vomiting episode Hb dropped to 6.9 today Objective - Constitutional Vitals: Vital Signs - 12hr 11/13/17 11/13/17 11/13/17 22:31 22:41 22:51 Temperature Pulse Rate 93 H 114 H 104 H Pulse Rate [ Left Radial] Pulse Rate [ Right Radial] Respiratory 19 19 19 Rate Blood Pressure 112/89 112/89 112/89 O2 Sat by Pulse 97 98 99 Oximetry 11/13/17 11/13/17 11/13/17 23:00 23:11 23:21 Temperature Pulse Rate 97 H 98 H 103 H Pulse Rate [ Left Radial] Pulse Rate [ Right Radial] Respiratory 19 17 19 Rate Blood Pressure 114/62 114/62 114/62 O2 Sat by Pulse 100 97 98 Oximetry 11/13/17 11/13/17 11/13/17 23:23 23:26 23:31 Temperature 97.7 F Pulse Rate 108 H 101 H Pulse Rate [ 103 H Left Radial] Pulse Rate [ 103 H Right Radial] Respiratory 20 17 Rate Blood Pressure 114/62 114/62 114/62 O2 Sat by Pulse 97 96 Oximetry 11/13/17 11/13/17 11/14/17 23:41 23:51 00:00 Temperature 98.3 F Pulse Rate 103 H 124 H 98 H Pulse Rate [ Left Radial] Pulse Rate [ Right Radial] Respiratory 18 19 18 Rate Blood Pressure 114/62 114/62 119/63 O2 Sat by Pulse 98 97 Oximetry 11/14/17 11/14/17 11/14/17 00:11 00:21 00:31 Temperature Pulse Rate 104 H 105 H 123 H Pulse Rate [ Left Radial] Pulse Rate [ Right Radial] Respiratory 20 18 20 Rate Blood Pressure 119/63 119/63 119/63 O2 Sat by Pulse 97 99 99 Oximetry 11/14/17 11/14/17 11/14/17 00:41 00:50 01:00 Temperature Pulse Rate 113 H 126 H 110 H Pulse Rate [ Left Radial] Pulse Rate [ Right Radial] Respiratory 19 18 20 Rate Blood Pressure 119/63 116/63 O2 Sat by Pulse 98 97 98 Oximetry 11/14/17 11/14/17 11/14/17 01:11 01:21 01:31 Temperature Pulse Rate 110 H 107 H 111 H Pulse Rate [ Left Radial] Pulse Rate [ Right Radial] Respiratory 20 22 21 Rate Blood Pressure 119/63 119/63 119/63 O2 Sat by Pulse 97 97 98 Oximetry 11/14/17 11/14/17 11/14/17 01:41 01:51 02:00 Temperature Pulse Rate 113 H 114 H 120 H Pulse Rate [ 120 H Left Radial] Pulse Rate [ 120 H Right Radial] Respiratory 21 16 22 Rate Blood Pressure 119/63 119/63 106/41 O2 Sat by Pulse 98 98 98 Oximetry 11/14/17 11/14/17 11/14/17 02:11 02:21 02:31 Temperature Pulse Rate 119 H 112 H 111 H Pulse Rate [ Left Radial] Pulse Rate [ Right Radial] Respiratory 19 15 23 Rate Blood Pressure 106/41 106/41 106/41 O2 Sat by Pulse 95 97 98 Oximetry 11/14/17 11/14/17 11/14/17 02:41 02:51 03:00 Temperature Pulse Rate 109 H 115 H 111 H Pulse Rate [ Left Radial] Pulse Rate [ Right Radial] Respiratory 18 21 20 Rate Blood Pressure 106/41 106/41 104/56 O2 Sat by Pulse 97 96 Oximetry 11/14/17 11/14/17 11/14/17 03:11 03:21 03:31 Temperature Pulse Rate 114 H 106 H 111 H Pulse Rate [ Left Radial] Pulse Rate [ Right Radial] Respiratory 22 21 20 Rate Blood Pressure 104/56 104/56 104/56 O2 Sat by Pulse 96 97 93 Oximetry 11/14/17 11/14/17 11/14/17 03:41 03:51 04:00 Temperature 99.0 F Pulse Rate 118 H 112 H 110 H Pulse Rate [ 103 H Left Radial] Pulse Rate [ 103 H Right Radial] Respiratory 21 19 19 Rate Blood Pressure 104/56 104/56 106/48 O2 Sat by Pulse 91 94 97 Oximetry 11/14/17 11/14/17 11/14/17 04:11 04:21 04:31 Temperature Pulse Rate 108 H 111 H 119 H Pulse Rate [ Left Radial] Pulse Rate [ Right Radial] Respiratory 20 17 23 Rate Blood Pressure 106/48 106/48 106/48 O2 Sat by Pulse 96 95 96 Oximetry 11/14/17 11/14/17 11/14/17 04:41 04:51 05:00 Temperature Pulse Rate 122 H 107 H 100 H Pulse Rate [ Left Radial] Pulse Rate [ Right Radial] Respiratory 18 15 18 Rate Blood Pressure 106/48 106/48 105/52 O2 Sat by Pulse 95 97 96 Oximetry 11/14/17 11/14/17 11/14/17 05:11 05:21 05:31 Temperature Pulse Rate 125 H 109 H 101 H Pulse Rate [ Left Radial] Pulse Rate [ Right Radial] Respiratory 21 21 19 Rate Blood Pressure 105/52 105/52 105/52 O2 Sat by Pulse 91 96 89 Oximetry 11/14/17 11/14/17 05:41 05:49 Temperature Pulse Rate 105 H Pulse Rate [ 99 H Left Radial] Pulse Rate [ 99 H Right Radial] Respiratory 18 20 Rate Blood Pressure 105/52 O2 Sat by Pulse 99 Oximetry - Labs CBC & Chem 7: 11/15/17 04:03 11/15/17 04:03 Labs: Abnormal lab results 11/13/17 11/13/17 11/13/17 Range/Units 04:20 13:09 14:50 WBC 16.5 H (4.5-11.0) K/mm3 RBC 2.78 L (3.65-5.03) M/mm3 Hgb 7.5 L (11.8-15.2) gm/dl Hct 23.8 L (35.5-45.6) % MCH 27 L (28-32) pg MCHC 31 L (32-34) % RDW 19.2 H (13.2-15.2) % Plt Count 109 L (140-440) K/mm3 Lymph % (Auto) (13.4-35.0) % Power % (Auto) (0.0-7.3) % Power # (0.0-0.8) K/mm3 Seg Neutrophils % (40.0-70.0) % Seg Neutrophils # (1.8-7.7) K/mm3 Sodium 133 L (137-145) mmol/L Potassium 5.5 H (3.6-5.0) mmol/L Carbon Dioxide 19 L (22-30) mmol/L BUN 40 H (9-20) mg/dL Glucose 161 H (75-100) mg/dL POC Glucose (70-105) Calcium 6.7 L (8.4-10.2) mg/dL Phosphorus (2.5-4.5) mg/dL Magnesium (1.7-2.3) mg/dL Total Bilirubin (0.1-1.2) mg/dL AST (5-40) units/L ALT (7-56) units/L Total Protein (6.3-8.2) g/dL Albumin (3.9-5) g/dL Urine Creatinine (0.1-20.0) mg/dL Crossmatch See Detail 11/13/17 11/13/17 11/13/17 Range/Units 16:44 18:03 21:31 WBC (4.5-11.0) K/mm3 RBC (3.65-5.03) M/mm3 Hgb (11.8-15.2) gm/dl Hct (35.5-45.6) % MCH (28-32) pg MCHC (32-34) % RDW (13.2-15.2) % Plt Count (140-440) K/mm3 Lymph % (Auto) (13.4-35.0) % Power % (Auto) (0.0-7.3) % Power # (0.0-0.8) K/mm3 Seg Neutrophils % (40.0-70.0) % Seg Neutrophils # (1.8-7.7) K/mm3 Sodium (137-145) mmol/L Potassium (3.6-5.0) mmol/L Carbon Dioxide (22-30) mmol/L BUN (9-20) mg/dL Glucose (75-100) mg/dL POC Glucose 155 H 132 H (70-105) Calcium (8.4-10.2) mg/dL Phosphorus (2.5-4.5) mg/dL Magnesium (1.7-2.3) mg/dL Total Bilirubin (0.1-1.2) mg/dL AST (5-40) units/L ALT (7-56) units/L Total Protein (6.3-8.2) g/dL Albumin (3.9-5) g/dL Urine Creatinine 273.6 H (0.1-20.0) mg/dL Crossmatch 11/13/17 11/14/17 11/14/17 Range/Units 21:32 04:45 04:45 WBC 13.7 H (4.5-11.0) K/mm3 RBC 2.63 L (3.65-5.03) M/mm3 Hgb 7.3 L 7.1 L (11.8-15.2) gm/dl Hct 22.7 L 22.2 L (35.5-45.6) % MCH 27 L (28-32) pg MCHC (32-34) % RDW 19.5 H (13.2-15.2) % Plt Count 88 L (140-440) K/mm3 Lymph % (Auto) 10.8 L (13.4-35.0) % Power % (Auto) 8.4 H (0.0-7.3) % Power # 1.2 H (0.0-0.8) K/mm3 Seg Neutrophils % 80.0 H (40.0-70.0) % Seg Neutrophils # 11.0 H (1.8-7.7) K/mm3 Sodium (137-145) mmol/L Potassium 5.1 H (3.6-5.0) mmol/L Carbon Dioxide 19 L (22-30) mmol/L BUN 40 H (9-20) mg/dL Glucose 206 H (75-100) mg/dL POC Glucose (70-105) Calcium 6.5 L (8.4-10.2) mg/dL Phosphorus 2.30 L (2.5-4.5) mg/dL Magnesium 1.40 L (1.7-2.3) mg/dL Total Bilirubin 1.30 H (0.1-1.2) mg/dL AST 129 H (5-40) units/L ALT 123 H (7-56) units/L Total Protein 4.7 L (6.3-8.2) g/dL Albumin 1.8 L (3.9-5) g/dL Urine Creatinine (0.1-20.0) mg/dL Crossmatch 11/14/17 Range/Units 09:09 WBC (4.5-11.0) K/mm3 RBC (3.65-5.03) M/mm3 Hgb (11.8-15.2) gm/dl Hct (35.5-45.6) % MCH (28-32) pg MCHC (32-34) % RDW (13.2-15.2) % Plt Count (140-440) K/mm3 Lymph % (Auto) (13.4-35.0) % Power % (Auto) (0.0-7.3) % Power # (0.0-0.8) K/mm3 Seg Neutrophils % (40.0-70.0) % Seg Neutrophils # (1.8-7.7) K/mm3 Sodium (137-145) mmol/L Potassium (3.6-5.0) mmol/L Carbon Dioxide (22-30) mmol/L BUN (9-20) mg/dL Glucose (75-100) mg/dL POC Glucose 251 H (70-105) Calcium (8.4-10.2) mg/dL Phosphorus (2.5-4.5) mg/dL Magnesium (1.7-2.3) mg/dL Total Bilirubin (0.1-1.2) mg/dL AST (5-40) units/L ALT (7-56) units/L Total Protein (6.3-8.2) g/dL Albumin (3.9-5) g/dL Urine Creatinine (0.1-20.0) mg/dL Crossmatch
--- NOTE | 2017-11-14 11:33 | Gastroenterology Progress Note ---
<ERNIE DUDLEY - Last Filed: 11/14/17 11:35> Assessment and Plan 1. GI bleeding 2. Likely cirrhosis -S/P EGD with Large esophageal varices with 1 varix with a tiny ulcer at the esophagogastric junction. Large cluster of gastric varices at the cardia. Portal hypertension gastropathy. -S/P banding x 7 -H/H stable -Currently on octreotide gtt, this can be stopped tomorrow -PPI gtt can be stopped and start BID dosing -unclear etiology of cirrhosis. Will check abdominal US for contour of liver, although labs are c/w cirrhosis -Hepatitis negative -Pt denies ETOH use currently, unclear if in the past. Will need further workup of cirrhosis as outpatient. -OK to start clear liquid diet. -Will follow. Subjective Date of service: 11/14/17 Interval history: NAD. No further vomiting. H/H stable. Objective - Constitutional Vitals: Temp Pulse Resp BP Pulse Ox 99.0 F 99 H 20 105/52 99 11/14/17 04:00 11/14/17 05:49 11/14/17 05:49 11/14/17 05:41 11/14/17 05:41 General appearance: no acute distress - EENT Eyes: EOM intact ENT: hearing intact - Neck Neck: supple - Cardiovascular Rhythm: other (tachycardia) Heart Sounds: Present: S1 & S2 - Gastrointestinal General gastrointestinal: Present: soft, non-tender, normal bowel sounds - Integumentary Integumentary: Present: warm, dry - Neurologic Neurological: alert and oriented x3 - Psychiatric Psychiatric: appropriate mood/affect, cooperative - Labs CBC & Chem 7: 11/14/17 04:45 11/14/17 04:45 Labs: Laboratory Results - last 24 hr 11/13/17 11/13/17 11/13/17 04:20 08:11 08:11 WBC RBC Hgb Hct MCV MCH MCHC RDW Plt Count Lymph % (Auto) [place] % (Auto) Eos % (Auto) Baso % (Auto) Lymph # [place] # Eos # Baso # Seg Neutrophils % Seg Neutrophils # Sodium Potassium Chloride Carbon Dioxide Anion Gap BUN Creatinine Estimated GFR BUN/Creatinine Ratio Glucose POC Glucose Hemoglobin A1c Lactic Acid Calcium Phosphorus Magnesium Total Bilirubin AST ALT Alkaline Phosphatase Total Protein Albumin Albumin/Globulin Ratio Urine Color Urine Turbidity Urine pH Ur Specific [place] Urine Protein Urine Glucose (UA) Urine Ketones Urine Blood Urine Nitrite Ur Reducing Substances Urine Bilirubin Urine Ictotest Urine Urobilinogen Ur Leukocyte Esterase Urine WBC (Auto) Urine RBC (Auto) U Epithel Cells (Auto) Urine Bacteria (Auto) Urine Mucus Urine Creatinine Urine Sodium Hep Bs Antigen Non-reactive Hepatitis C Antibody Non-reactive Crossmatch See Detail 11/13/17 11/13/17 11/13/17 13:09 14:50 14:50 WBC 16.5 H RBC 2.78 L Hgb 7.5 L Hct 23.8 L MCV 86 MCH 27 L MCHC 31 L RDW 19.2 H Plt Count 109 L Lymph % (Auto) [place] % (Auto) Eos % (Auto) Baso % (Auto) Lymph # [place] # Eos # Baso # Seg Neutrophils % Seg Neutrophils # Sodium 133 L Potassium 5.5 H Chloride 102.1 Carbon Dioxide 19 L Anion Gap 17 BUN 40 H Creatinine 1.5 Estimated GFR 53 BUN/Creatinine Ratio 27 Glucose 161 H POC Glucose Hemoglobin A1c 5.4 Lactic Acid Calcium 6.7 L Phosphorus Magnesium Total Bilirubin AST ALT Alkaline Phosphatase Total Protein Albumin Albumin/Globulin Ratio Urine Color Urine Turbidity Urine pH Ur Specific [place] Urine Protein Urine Glucose (UA) Urine Ketones Urine Blood Urine Nitrite Ur Reducing Substances Urine Bilirubin Urine Ictotest Urine Urobilinogen Ur Leukocyte Esterase Urine WBC (Auto) Urine RBC (Auto) U Epithel Cells (Auto) Urine Bacteria (Auto) Urine Mucus Urine Creatinine Urine Sodium Hep Bs Antigen Hepatitis C Antibody Crossmatch 11/13/17 11/13/17 11/13/17 16:44 18:03 18:03 WBC RBC Hgb Hct MCV MCH MCHC RDW Plt Count Lymph % (Auto) [place] % (Auto) Eos % (Auto) Baso % (Auto) Lymph # [place] # Eos # Baso # Seg Neutrophils % Seg Neutrophils # Sodium Potassium Chloride Carbon Dioxide Anion Gap BUN Creatinine Estimated GFR BUN/Creatinine Ratio Glucose POC Glucose 155 H Hemoglobin A1c Lactic Acid Calcium Phosphorus Magnesium Total Bilirubin AST ALT Alkaline Phosphatase Total Protein Albumin Albumin/Globulin Ratio Urine Color Yellow Urine Turbidity Clear Urine pH 5.0 Ur Specific [place] 1.021 Urine Protein <15 mg/dl Urine Glucose (UA) 50 Urine Ketones Tr Urine Blood Neg Urine Nitrite Neg Ur Reducing Substances Not Reportable Urine Bilirubin Neg Urine Ictotest Not Reportable Urine Urobilinogen < 2.0 Ur Leukocyte Esterase Neg Urine WBC (Auto) 6.0 Urine RBC (Auto) 1.0 U Epithel Cells (Auto) 1.0 Urine Bacteria (Auto) 1+ Urine Mucus Few Urine Creatinine 273.6 H Urine Sodium 11 Hep Bs Antigen Hepatitis C Antibody Crossmatch 11/13/17 11/13/17 11/14/17 21:31 21:32 04:45 WBC 13.7 H RBC 2.63 L Hgb 7.3 L 7.1 L Hct 22.7 L 22.2 L MCV 84 MCH 27 L MCHC 32 RDW 19.5 H Plt Count 88 L Lymph % (Auto) 10.8 L [place] % (Auto) 8.4 H Eos % (Auto) 0.1 Baso % (Auto) 0.7 Lymph # 1.5 [place] # 1.2 H Eos # 0.0 Baso # 0.1 Seg Neutrophils % 80.0 H Seg Neutrophils # 11.0 H Sodium Potassium Chloride Carbon Dioxide Anion Gap BUN Creatinine Estimated GFR BUN/Creatinine Ratio Glucose POC Glucose 132 H Hemoglobin A1c Lactic Acid Calcium Phosphorus Magnesium Total Bilirubin AST ALT Alkaline Phosphatase Total Protein Albumin Albumin/Globulin Ratio Urine Color Urine Turbidity Urine pH Ur Specific [place] Urine Protein Urine Glucose (UA) Urine Ketones Urine Blood Urine Nitrite Ur Reducing Substances Urine Bilirubin Urine Ictotest Urine Urobilinogen Ur Leukocyte Esterase Urine WBC (Auto) Urine RBC (Auto) U Epithel Cells (Auto) Urine Bacteria (Auto) Urine Mucus Urine Creatinine Urine Sodium Hep Bs Antigen Hepatitis C Antibody Crossmatch 11/14/17 11/14/17 11/14/17 04:45 09:09 10:32 WBC RBC Hgb Hct MCV MCH MCHC RDW Plt Count Lymph % (Auto) [place] % (Auto) Eos % (Auto) Baso % (Auto) Lymph # [place] # Eos # Baso # Seg Neutrophils % Seg Neutrophils # Sodium 137 Potassium 5.1 H Chloride 106.2 Carbon Dioxide 19 L Anion Gap 17 BUN 40 H Creatinine 1.2 Estimated GFR > 60 BUN/Creatinine Ratio 33 Glucose 206 H POC Glucose 251 H Hemoglobin A1c Lactic Acid 2.20 H* Calcium 6.5 L Phosphorus 2.30 L Magnesium 1.40 L Total Bilirubin 1.30 H AST 129 H ALT 123 H Alkaline Phosphatase 92 Total Protein 4.7 L Albumin 1.8 L Albumin/Globulin Ratio 0.6 Urine Color Urine Turbidity Urine pH Ur Specific [place] Urine Protein Urine Glucose (UA) Urine Ketones Urine Blood Urine Nitrite Ur Reducing Substances Urine Bilirubin Urine Ictotest Urine Urobilinogen Ur Leukocyte Esterase Urine WBC (Auto) Urine RBC (Auto) U Epithel Cells (Auto) Urine Bacteria (Auto) Urine Mucus Urine Creatinine Urine Sodium Hep Bs Antigen Hepatitis C Antibody Crossmatch <MIGUEL ESQUIVEL R - Last Filed: 11/14/17 11:43> Assessment and Plan Plan as noted. Discussed with Dr. Mars. Objective - Constitutional Vitals: Temp Pulse Resp BP Pulse Ox 99.0 F 99 H 20 105/52 99 11/14/17 04:00 11/14/17 05:49 11/14/17 05:49 11/14/17 05:41 11/14/17 05:41 - Labs CBC & Chem 7: 11/14/17 04:45 11/14/17 04:45 Labs: Laboratory Results - last 24 hr 11/13/17 11/13/17 11/13/17 04:20 08:11 08:11 WBC RBC Hgb Hct MCV MCH MCHC RDW Plt Count Lymph % (Auto) [place] % (Auto) Eos % (Auto) Baso % (Auto) Lymph # [place] # Eos # Baso # Seg Neutrophils % Seg Neutrophils # Sodium Potassium Chloride Carbon Dioxide Anion Gap BUN Creatinine Estimated GFR BUN/Creatinine Ratio Glucose POC Glucose Hemoglobin A1c Lactic Acid Calcium Phosphorus Magnesium Total Bilirubin AST ALT Alkaline Phosphatase Total Protein Albumin Albumin/Globulin Ratio Urine Color Urine Turbidity Urine pH Ur Specific [place] Urine Protein Urine Glucose (UA) Urine Ketones Urine Blood Urine Nitrite Ur Reducing Substances Urine Bilirubin Urine Ictotest Urine Urobilinogen Ur Leukocyte Esterase Urine WBC (Auto) Urine RBC (Auto) U Epithel Cells (Auto) Urine Bacteria (Auto) Urine Mucus Urine Creatinine Urine Sodium Hep Bs Antigen Non-reactive Hepatitis C Antibody Non-reactive Crossmatch See Detail 11/13/17 11/13/17 11/13/17 13:09 14:50 14:50 WBC 16.5 H RBC 2.78 L Hgb 7.5 L Hct 23.8 L MCV 86 MCH 27 L MCHC 31 L RDW 19.2 H Plt Count 109 L Lymph % (Auto) [place] % (Auto) Eos % (Auto) Baso % (Auto) Lymph # [place] # Eos # Baso # Seg Neutrophils % Seg Neutrophils # Sodium 133 L Potassium 5.5 H Chloride 102.1 Carbon Dioxide 19 L Anion Gap 17 BUN 40 H Creatinine 1.5 Estimated GFR 53 BUN/Creatinine Ratio 27 Glucose 161 H POC Glucose Hemoglobin A1c 5.4 Lactic Acid Calcium 6.7 L Phosphorus Magnesium Total Bilirubin AST ALT Alkaline Phosphatase Total Protein Albumin Albumin/Globulin Ratio Urine Color Urine Turbidity Urine pH Ur Specific [place] Urine Protein Urine Glucose (UA) Urine Ketones Urine Blood Urine Nitrite Ur Reducing Substances Urine Bilirubin Urine Ictotest Urine Urobilinogen Ur Leukocyte Esterase Urine WBC (Auto) Urine RBC (Auto) U Epithel Cells (Auto) Urine Bacteria (Auto) Urine Mucus Urine Creatinine Urine Sodium Hep Bs Antigen Hepatitis C Antibody Crossmatch 11/13/17 11/13/17 11/13/17 16:44 18:03 18:03 WBC RBC Hgb Hct MCV MCH MCHC RDW Plt Count Lymph % (Auto) [place] % (Auto) Eos % (Auto) Baso % (Auto) Lymph # [place] # Eos # Baso # Seg Neutrophils % Seg Neutrophils # Sodium Potassium Chloride Carbon Dioxide Anion Gap BUN Creatinine Estimated GFR BUN/Creatinine Ratio Glucose POC Glucose 155 H Hemoglobin A1c Lactic Acid Calcium Phosphorus Magnesium Total Bilirubin AST ALT Alkaline Phosphatase Total Protein Albumin Albumin/Globulin Ratio Urine Color Yellow Urine Turbidity Clear Urine pH 5.0 Ur Specific [place] 1.021 Urine Protein <15 mg/dl Urine Glucose (UA) 50 Urine Ketones Tr Urine Blood Neg Urine Nitrite Neg Ur Reducing Substances Not Reportable Urine Bilirubin Neg Urine Ictotest Not Reportable Urine Urobilinogen < 2.0 Ur Leukocyte Esterase Neg Urine WBC (Auto) 6.0 Urine RBC (Auto) 1.0 U Epithel Cells (Auto) 1.0 Urine Bacteria (Auto) 1+ Urine Mucus Few Urine Creatinine 273.6 H Urine Sodium 11 Hep Bs Antigen Hepatitis C Antibody Crossmatch 11/13/17 11/13/17 11/14/17 21:31 21:32 04:45 WBC 13.7 H RBC 2.63 L Hgb 7.3 L 7.1 L Hct 22.7 L 22.2 L MCV 84 MCH 27 L MCHC 32 RDW 19.5 H Plt Count 88 L Lymph % (Auto) 10.8 L [place] % (Auto) 8.4 H Eos % (Auto) 0.1 Baso % (Auto) 0.7 Lymph # 1.5 [place] # 1.2 H Eos # 0.0 Baso # 0.1 Seg Neutrophils % 80.0 H Seg Neutrophils # 11.0 H Sodium Potassium Chloride Carbon Dioxide Anion Gap BUN Creatinine Estimated GFR BUN/Creatinine Ratio Glucose POC Glucose 132 H Hemoglobin A1c Lactic Acid Calcium Phosphorus Magnesium Total Bilirubin AST ALT Alkaline Phosphatase Total Protein Albumin Albumin/Globulin Ratio Urine Color Urine Turbidity Urine pH Ur Specific [place] Urine Protein Urine Glucose (UA) Urine Ketones Urine Blood Urine Nitrite Ur Reducing Substances Urine Bilirubin Urine Ictotest Urine Urobilinogen Ur Leukocyte Esterase Urine WBC (Auto) Urine RBC (Auto) U Epithel Cells (Auto) Urine Bacteria (Auto) Urine Mucus Urine Creatinine Urine Sodium Hep Bs Antigen Hepatitis C Antibody Crossmatch 11/14/17 11/14/17 11/14/17 04:45 09:09 10:32 WBC RBC Hgb Hct MCV MCH MCHC RDW Plt Count Lymph % (Auto) [place] % (Auto) Eos % (Auto) Baso % (Auto) Lymph # [place] # Eos # Baso # Seg Neutrophils % Seg Neutrophils # Sodium 137 Potassium 5.1 H Chloride 106.2 Carbon Dioxide 19 L Anion Gap 17 BUN 40 H Creatinine 1.2 Estimated GFR > 60 BUN/Creatinine Ratio 33 Glucose 206 H POC Glucose 251 H Hemoglobin A1c Lactic Acid 2.20 H* Calcium 6.5 L Phosphorus 2.30 L Magnesium 1.40 L Total Bilirubin 1.30 H AST 129 H ALT 123 H Alkaline Phosphatase 92 Total Protein 4.7 L Albumin 1.8 L Albumin/Globulin Ratio 0.6 Urine Color Urine Turbidity Urine pH Ur Specific [place] Urine Protein Urine Glucose (UA) Urine Ketones Urine Blood Urine Nitrite Ur Reducing Substances Urine Bilirubin Urine Ictotest Urine Urobilinogen Ur Leukocyte Esterase Urine WBC (Auto) Urine RBC (Auto) U Epithel Cells (Auto) Urine Bacteria (Auto) Urine Mucus Urine Creatinine Urine Sodium Hep Bs Antigen Hepatitis C Antibody Crossmatch
[2017-11-14] MEDS: VITAMIN K (ADULT ONLY) SUB-Q SCH ×2 (12:00→21:59)
--- NOTE | 2017-11-14 13:20 | Consultation ---
History of Present Illness Consult date: 11/14/17 Requesting physician: RICO WELSH Reason for consult: other (Acute GI Bleed) History of present illness: PULMONARY/CCM CONSULT NOTE (Full dictation # ) Please see dictated notes for full details Past History Past Medical History: diabetes Past Surgical History: No surgical history Social history: no significant social history. denies: smoking, alcohol abuse Family history: no significant family history Medications and Allergies Allergies Allergy/AdvReac Type Severity Reaction Status Date / Time No Known Allergies Allergy Verified 11/13/17 04:31 Home Medications Medication Instructions Recorded Confirmed Last Taken Type No Known Home Medications [No 11/13/17 11/13/17 Unknown History Reported Home Medications] Active Meds: Active Medications Acetaminophen (Tylenol) 650 mg UT Q6H PRN PRN Reason: Pain, Mild (1-3) Ferrous Sulfate (Feosol) 325 mg PO BID KATHRYN Folic Acid (Folvite) 1 mg PO QDAY KATHRYN Octreotide Acetate 500 mcg/ (Sodium Chloride) 101 mls @ 5.05 mls/hr IV TITR KATHRYN ; Protocol Last Admin: 11/13/17 23:46 Dose: 25 mcg/hr, 5.05 mls/hr Dextrose/Sodium Chloride (D5ns) 1,000 mls @ 125 mls/hr IV DIRECT KATHRYN Last Admin: 11/13/17 23:49 Dose: 125 mls/hr Magnesium Sulfate (Magnesium Sulfate 4gm/100ml) 4 gm in 100 mls @ 25 mls/hr IV ONCE ONE Stop: 11/14/17 13:59 Last Admin: 11/14/17 12:37 Dose: 25 mls/hr Sodium Phosphate 30 mmol/ (Sodium Chloride) 510 mls @ 125 mls/hr IV ONCE ONE Stop: 11/14/17 14:04 Last Admin: 11/14/17 12:37 Dose: 125 mls/hr Thiamine HCl 100 mg/ Sodium (Chloride) 51 mls @ 100 mls/hr IV QDAY KATHRYN Insulin Human Regular (Humulin R) 0 units SUB-Q ACHS KATHRYN; Protocol Last Admin: 11/14/17 09:00 Dose: 4 units Pantoprazole Sodium (Protonix) 40 mg IV BID KATHRYN Phytonadione (Vitamin K (Adult Only)) 10 mg SUB-Q Q8H KATHRYN Stop: 11/16/17 04:01 Physical Examination Vital signs: Vital Signs Temp Pulse Resp BP Pulse Ox 98.3 F 104 H 22 93/38 100 11/13/17 04:08 11/13/17 04:08 11/13/17 04:08 11/13/17 04:08 11/13/17 04:08 Results - Laboratory Findings CBC and BMP: 11/14/17 04:45 11/14/17 04:45 PT/INR, D-dimer PT 22.6 Sec. (12.2-14.9) H 11/13/17 Unknown INR 1.86 (0.87-1.13) H 11/13/17 Unknown Abnormal lab findings: Abnormal Labs 11/13/17 11/13/17 11/13/17 04:20 04:20 09:22 WBC 12.9 H RBC 2.73 L Hgb 6.2 L Hct 23.3 L MCH 25 L MCHC 29 L RDW 20.7 H Plt Count Lymph % (Auto) [place] % (Auto) [place] # Seg Neutrophils % 79.6 H Seg Neutrophils # 10.2 H PT INR Sodium Potassium Carbon Dioxide BUN Creatinine Glucose POC Glucose 231 H Lactic Acid Calcium Phosphorus Magnesium Total Bilirubin AST ALT Alkaline Phosphatase Total Protein Albumin Urine Creatinine Crossmatch See Detail 11/13/17 11/13/17 11/13/17 13:09 14:50 16:44 WBC 16.5 H RBC 2.78 L Hgb 7.5 L Hct 23.8 L MCH 27 L MCHC 31 L RDW 19.2 H Plt Count 109 L Lymph % (Auto) [place] % (Auto) [place] # Seg Neutrophils % Seg Neutrophils # PT INR Sodium 133 L Potassium 5.5 H Carbon Dioxide 19 L BUN 40 H Creatinine Glucose 161 H POC Glucose 155 H Lactic Acid Calcium 6.7 L Phosphorus Magnesium Total Bilirubin AST ALT Alkaline Phosphatase Total Protein Albumin Urine Creatinine Crossmatch 11/13/17 11/13/17 11/13/17 18:03 21:31 21:32 WBC RBC Hgb 7.3 L Hct 22.7 L MCH MCHC RDW Plt Count Lymph % (Auto) [place] % (Auto) [place] # Seg Neutrophils % Seg Neutrophils # PT INR Sodium Potassium Carbon Dioxide BUN Creatinine Glucose POC Glucose 132 H Lactic Acid Calcium Phosphorus Magnesium Total Bilirubin AST ALT Alkaline Phosphatase Total Protein Albumin Urine Creatinine 273.6 H Crossmatch 11/13/17 11/13/17 11/13/17 Unknown Unknown Unknown WBC RBC Hgb Hct MCH MCHC RDW Plt Count Lymph % (Auto) [place] % (Auto) [place] # Seg Neutrophils % Seg Neutrophils # PT 22.6 H INR 1.86 H Sodium 133 L Potassium 5.1 H Carbon Dioxide 13 L BUN 34 H Creatinine 1.8 H Glucose 240 H POC Glucose Lactic Acid 10.30 H* Calcium 7.3 L Phosphorus Magnesium Total Bilirubin AST 69 H ALT 69 H Alkaline Phosphatase 141 H Total Protein 5.7 L Albumin 2.1 L Urine Creatinine Crossmatch 11/14/17 11/14/17 11/14/17 04:45 04:45 09:09 WBC 13.7 H RBC 2.63 L Hgb 7.1 L Hct 22.2 L MCH 27 L MCHC RDW 19.5 H Plt Count 88 L Lymph % (Auto) 10.8 L [place] % (Auto) 8.4 H [place] # 1.2 H Seg Neutrophils % 80.0 H Seg Neutrophils # 11.0 H PT INR Sodium Potassium 5.1 H Carbon Dioxide 19 L BUN 40 H Creatinine Glucose 206 H POC Glucose 251 H Lactic Acid Calcium 6.5 L Phosphorus 2.30 L Magnesium 1.40 L Total Bilirubin 1.30 H AST 129 H ALT 123 H Alkaline Phosphatase Total Protein 4.7 L Albumin 1.8 L Urine Creatinine Crossmatch 11/14/17 10:32 WBC RBC Hgb Hct MCH MCHC RDW Plt Count Lymph % (Auto) [place] % (Auto) [place] # Seg Neutrophils % Seg Neutrophils # PT INR Sodium Potassium Carbon Dioxide BUN Creatinine Glucose POC Glucose Lactic Acid 2.20 H* Calcium Phosphorus Magnesium Total Bilirubin AST ALT Alkaline Phosphatase Total Protein Albumin Urine Creatinine Crossmatch
[2017-11-14] MEDS ORDERED: NACL 0.9% 1000 ML 1,000 ML ONE (15:14)
[2017-11-14 16:47] LABS: Hematocrit 22.1 % (35.5-45.6); Hemoglobin 6.9 gm/dl (11.8-15.2)
--- NOTE | 2017-11-14 17:17 | Ultrasound Report ---
FINAL REPORT PROCEDURE: US RENAL BILAT TECHNIQUE: Real-time sonography in multiple planes of the kidneys, ureters and urinary bladder was performed with image documentation. CPT 00310 HISTORY: Acute renal failure. COMPARISON: No prior studies are available for comparison. FINDINGS: RIGHT kidney: Normal echotexture. No focal renal mass, calculus, or hydronephrosis. Length: 12.2 cm. LEFT kidney: Normal echotexture. No focal renal mass, calculus, or hydronephrosis. Length: 12.1cm. Bladder: No abnormality is seen.. There appears to be at least moderate amount of ascites in the upper abdomen. The entire abdomen was not studied. IMPRESSION: Kidneys are unremarkable. No hydronephrosis mass or calculi visualized. There appears to be least moderate amount of ascites in the upper abdomen. The entire abdomen was not study..
[2017-11-14] MEDS ORDERED: NACL 0.9% 500 ML 500 ML IV SCH (18:23)
[2017-11-14] MEDS: SandoSTATIN 500 MCG in NACL 0.9% 100 ML IV SCH (19:21)
[2017-11-14] MEDS: FEOSOL PO SCH (21:59)
[2017-11-14 23:08] LABS: Hemoglobin 6.5 gm/dl (11.8-15.2)
[2017-11-14 23:18] LABS: Hematocrit 19.6 % (35.5-45.6)
[2017-11-15 04:44] LABS: BUN/Creatinine Ratio 28; Blood Urea Nitrogen 17 mg/dL (9-20); Calcium 6.4 mg/dL (8.4-10.2); Hemolysis Index 22
[2017-11-15] MEDS: VITAMIN K (ADULT ONLY) SUB-Q SCH ×3 (04:46→22:44)
[2017-11-15 04:55] LABS: Basophils # (Auto) 0.1 K/mm3 (0.0-0.1); Basophils % (Auto) 0.5 % (0.0-1.8); Eosinophils % (Auto) 0.1 % (0.0-4.3); Hematocrit 24.2 % (35.5-45.6); Hemoglobin 7.9 gm/dl (11.8-15.2); Lymphocytes # (Auto) 1.6 K/mm3 (1.2-5.4); Lymphocytes % (Auto) 12.5 % (13.4-35.0); Mean Corpuscular HGB Conc 33 % (32-34); Mean Corpuscular Hemoglobin 27 pg (28-32); Mean Corpuscular Volume 84 fl (84-94); Monocytes # (Auto) 1.4 K/mm3 (0.0-0.8); Monocytes % (Auto) 11.3 % (0.0-7.3); Red Blood Count 2.87 M/mm3 (3.65-5.03); Red Cell Distribution Width 18.7 % (13.2-15.2)
[2017-11-15 05:07] LABS: Platelet Count 87 K/mm3 (140-440)
[2017-11-15] MEDS: HumuLIN R SUB-Q SCH ×4 (07:30→22:50)
--- NOTE | 2017-11-15 09:14 | Ultrasound Report ---
FINAL REPORT EXAM: US ABDOMEN COMPLETE HISTORY: evaluate for cirrhosis TECHNIQUE: Sonography of the abdomen performed. PRIORS: None. FINDINGS: There is a cirrhotic appearing liver. There is a mass in the right lobe which is nonspecific. It measures 1.2 x 1.1 x 1.3 cm. There is moderate ascites. There is no biliary dilatation. Proximal CBD is 4 mm. There is also splenomegaly measuring 15.5 cm largest dimension. The gallbladder is distended. There is no cholelithiasis or wall thickening, wall thickening, or pericholecystic fluid. Pancreas is poorly visualized due to bowel gas. Mid to distal aorta is poorly visualized. There is no hydronephrosis. IMPRESSION: Cirrhotic liver with moderate ascites and splenomegaly. Mass in right hepatic lobe measures 1.2 x 1.1 x 1.3 cm. This is nonspecific. Recommend further evaluation with MRI. Gallbladder distention without cholelithiasis.
--- NOTE | 2017-11-15 09:43 | Progress Note ---
Assessment and Plan 1. Acute kidney injury: Hemodynamic / Vasomotor KARLOS in the setting of volume depletion and hypotension. Renal function has improved. Renal US normal. 2. Electrolytes: Stable. 3. Volume depletion: Continue IV fluids. 4. Lactic acidosis: Improved. 5. Cirrhosis with variceal bleed: S/p banding. 6. Anemia: Monitor. Will sign off. Subjective Date of service: 11/15/17 Interval history: Patient was seen and examined at the bedside. Doing ok. Objective - Vital Signs Vital signs: Vital Signs - 12hr 11/14/17 11/14/17 11/14/17 21:50 22:00 22:10 Temperature Pulse Rate 100 H 100 H 109 H Pulse Rate [ From Monitor] Respiratory 18 15 19 Rate Blood Pressure 120/62 110/60 110/60 O2 Sat by Pulse 97 100 97 Oximetry 11/14/17 11/14/17 11/14/17 22:20 22:30 22:40 Temperature Pulse Rate 101 H 95 H 97 H Pulse Rate [ From Monitor] Respiratory 15 19 17 Rate Blood Pressure 110/60 110/60 110/60 O2 Sat by Pulse 96 97 95 Oximetry 11/14/17 11/14/17 11/14/17 22:45 22:50 23:00 Temperature 98.3 F 98.2 F Pulse Rate 95 H 95 H 98 H Pulse Rate [ From Monitor] Respiratory 19 19 19 Rate Blood Pressure 119/70 119/70 131/64 O2 Sat by Pulse 97 97 100 Oximetry 11/14/17 11/14/17 11/14/17 23:10 23:20 23:30 Temperature 98.3 F Pulse Rate 93 H 99 H 92 H Pulse Rate [ From Monitor] Respiratory 20 19 19 Rate Blood Pressure 131/64 126/69 124/65 O2 Sat by Pulse 96 96 100 Oximetry 11/14/17 11/14/17 11/15/17 23:40 23:50 00:00 Temperature 98 F Pulse Rate 95 H 96 H 100 H Pulse Rate [ 94 H From Monitor] Respiratory 17 19 20 Rate Blood Pressure 124/65 130/73 127/70 O2 Sat by Pulse 96 95 96 Oximetry 11/15/17 11/15/17 11/15/17 00:06 00:10 00:20 Temperature Pulse Rate 99 H 95 H 93 H Pulse Rate [ From Monitor] Respiratory 19 20 18 Rate Blood Pressure 127/70 127/70 120/66 O2 Sat by Pulse 95 94 95 Oximetry 11/15/17 11/15/17 11/15/17 00:30 00:40 00:50 Temperature 98 F Pulse Rate 92 H 97 H 117 H Pulse Rate [ From Monitor] Respiratory 18 16 24 Rate Blood Pressure 119/65 119/65 117/68 O2 Sat by Pulse 100 96 99 Oximetry 11/15/17 11/15/17 11/15/17 01:00 01:10 01:20 Temperature Pulse Rate 114 H 98 H 97 H Pulse Rate [ From Monitor] Respiratory 21 19 18 Rate Blood Pressure 112/65 112/65 118/71 O2 Sat by Pulse 99 94 95 Oximetry 11/15/17 11/15/17 11/15/17 01:30 01:40 01:50 Temperature Pulse Rate 95 H 98 H 98 H Pulse Rate [ From Monitor] Respiratory 18 17 18 Rate Blood Pressure 120/70 120/70 122/66 O2 Sat by Pulse 96 96 Oximetry 11/15/17 11/15/17 11/15/17 02:00 02:10 02:20 Temperature Pulse Rate 94 H 96 H 95 H Pulse Rate [ From Monitor] Respiratory 17 17 17 Rate Blood Pressure 115/67 120/70 120/70 O2 Sat by Pulse 96 96 Oximetry 11/15/17 11/15/17 11/15/17 02:30 02:40 02:50 Temperature Pulse Rate 94 H 93 H 94 H Pulse Rate [ From Monitor] Respiratory 15 18 16 Rate Blood Pressure 120/70 120/70 120/70 O2 Sat by Pulse 97 96 96 Oximetry 11/15/17 11/15/17 11/15/17 03:00 03:10 03:20 Temperature Pulse Rate 94 H 93 H 93 H Pulse Rate [ From Monitor] Respiratory 17 16 16 Rate Blood Pressure 117/69 117/69 117/69 O2 Sat by Pulse 97 97 Oximetry 11/15/17 11/15/17 11/15/17 03:30 03:40 03:50 Temperature Pulse Rate 93 H 94 H 94 H Pulse Rate [ From Monitor] Respiratory 16 14 17 Rate Blood Pressure 117/69 117/69 117/69 O2 Sat by Pulse 97 96 95 Oximetry 11/15/17 11/15/17 11/15/17 04:00 04:10 04:20 Temperature 98.2 F Pulse Rate 99 H 89 91 H Pulse Rate [ 92 H From Monitor] Respiratory 17 13 13 Rate Blood Pressure 127/73 127/73 127/73 O2 Sat by Pulse 90 100 99 Oximetry 11/15/17 11/15/17 11/15/17 04:30 04:40 04:50 Temperature Pulse Rate 94 H 92 H 91 H Pulse Rate [ From Monitor] Respiratory 18 16 16 Rate Blood Pressure 127/73 127/73 127/73 O2 Sat by Pulse 97 97 97 Oximetry 11/15/17 11/15/17 11/15/17 05:00 05:10 05:20 Temperature Pulse Rate 92 H 92 H 92 H Pulse Rate [ From Monitor] Respiratory 18 17 17 Rate Blood Pressure 118/69 118/69 118/69 O2 Sat by Pulse 96 96 Oximetry 11/15/17 11/15/17 11/15/17 05:30 05:40 05:50 Temperature Pulse Rate 101 H 96 H 94 H Pulse Rate [ From Monitor] Respiratory 17 16 16 Rate Blood Pressure 118/69 118/69 118/69 O2 Sat by Pulse 96 96 97 Oximetry 11/15/17 11/15/17 11/15/17 06:00 06:10 06:20 Temperature Pulse Rate 108 H 93 H 96 H Pulse Rate [ From Monitor] Respiratory 15 12 15 Rate Blood Pressure 135/59 135/59 135/59 O2 Sat by Pulse 93 97 98 Oximetry 11/15/17 11/15/17 11/15/17 06:30 06:40 06:50 Temperature Pulse Rate 92 H 97 H 93 H Pulse Rate [ From Monitor] Respiratory 16 18 16 Rate Blood Pressure 135/59 135/59 135/59 O2 Sat by Pulse 97 96 97 Oximetry 11/15/17 11/15/17 11/15/17 07:00 07:10 07:20 Temperature Pulse Rate 97 H 98 H 92 H Pulse Rate [ From Monitor] Respiratory 20 16 15 Rate Blood Pressure 127/69 135/59 135/59 O2 Sat by Pulse 99 96 98 Oximetry 11/15/17 11/15/17 11/15/17 07:30 07:40 07:50 Temperature Pulse Rate 98 H 92 H 93 H Pulse Rate [ From Monitor] Respiratory 15 15 17 Rate Blood Pressure 135/59 135/59 135/59 O2 Sat by Pulse 96 96 96 Oximetry 11/15/17 11/15/17 11/15/17 08:00 08:10 08:20 Temperature 98.2 F Pulse Rate 85 101 H 97 H Pulse Rate [ 92 H From Monitor] Respiratory 16 18 16 Rate Blood Pressure 110/57 110/57 110/57 O2 Sat by Pulse 96 95 97 Oximetry 11/15/17 11/15/17 11/15/17 08:30 08:40 08:50 Temperature Pulse Rate 87 94 H 90 Pulse Rate [ From Monitor] Respiratory 16 20 16 Rate Blood Pressure 110/57 110/57 110/57 O2 Sat by Pulse 98 96 98 Oximetry 11/15/17 11/15/17 11/15/17 09:00 09:10 09:20 Temperature Pulse Rate 92 H 90 95 H Pulse Rate [ From Monitor] Respiratory 17 17 18 Rate Blood Pressure 124/65 124/65 124/65 O2 Sat by Pulse 97 97 96 Oximetry 11/15/17 09:30 Temperature Pulse Rate 94 H Pulse Rate [ From Monitor] Respiratory 19 Rate Blood Pressure 124/65 O2 Sat by Pulse 95 Oximetry - General Appearance General appearance: well-developed, well-nourished, appears stated age, other ( no distress) EENT: ATNC, PERRL, mucous membranes moist, hearing intact Neck: supple Respiratory: Present: Clear to Ascultation Cardiology: regular, S1S2, no murmurs Gastrointestinal: normoactive bowel sounds, no tenderness, distended Integumentary: no rash, warm and dry Neurologic: no focal deficit, no asterixis Musculoskeletal: other (no edema) Psychiatric: mood/affect appropriate, cooperative - Lab 11/15/17 04:03 11/15/17 04:03 Most recent lab results Calcium 6.4 mg/dL (8.4-10.2) L 11/15/17 04:03 Phosphorus 2.80 mg/dL (2.5-4.5) D 11/15/17 04:03 Magnesium 2.20 mg/dL (1.7-2.3) 11/15/17 04:03 Urine Creatinine 273.6 mg/dL (0.1-20.0) H 11/13/17 18:03 Urine Sodium 11 mmol/L 11/13/17 18:03
[2017-11-15] MEDS ORDERED: NACL 0.9% 1000 ML 1,000 ML IV SCH (10:00)
--- NOTE | 2017-11-15 10:14 | Progress Note ---
Subjective Date of service: 11/15/17 Objective - Exam Narrative Exam: GENERAL: well-developed and well-nourished male lying on bed appeared to be in no discomfort. HEENT: Normocephalic. Atraumatic. No conjunctival congestion or icterus. Patient has moist mucous membranes. NECK: Supple. Trachea midline. CHEST/LUNGS: Clear to auscultated bilaterally, breathing nonlabored. No wheezes crackles or rhonchi. HEART/CARDIOVASCULAR: Regular in rate and rhythm. S1 and S2 positive. ABDOMEN: Abdomen is soft, nontender. Patient has normal bowel sounds. SKIN: There is no rash. Warm and dry. NEURO: No focal motor deficit. Follows command. MUSCULOSKELETAL: No joint effusion or tenderness. EXTRIMITY: No edema, no cyanosis or clubbing. PSYCH: Cooperative. Vital Signs - 12hr 11/14/17 11/14/17 11/14/17 22:20 22:30 22:40 Temperature Pulse Rate 101 H 95 H 97 H Pulse Rate [ From Monitor] Respiratory 15 19 17 Rate Blood Pressure 110/60 110/60 110/60 O2 Sat by Pulse 96 97 95 Oximetry 11/14/17 11/14/17 11/14/17 22:45 22:50 23:00 Temperature 98.3 F 98.2 F Pulse Rate 95 H 95 H 98 H Pulse Rate [ From Monitor] Respiratory 19 19 19 Rate Blood Pressure 119/70 119/70 131/64 O2 Sat by Pulse 97 97 100 Oximetry 11/14/17 11/14/17 11/14/17 23:10 23:20 23:30 Temperature 98.3 F Pulse Rate 93 H 99 H 92 H Pulse Rate [ From Monitor] Respiratory 20 19 19 Rate Blood Pressure 131/64 126/69 124/65 O2 Sat by Pulse 96 96 100 Oximetry 11/14/17 11/14/17 11/15/17 23:40 23:50 00:00 Temperature 98 F Pulse Rate 95 H 96 H 100 H Pulse Rate [ 94 H From Monitor] Respiratory 17 19 20 Rate Blood Pressure 124/65 130/73 127/70 O2 Sat by Pulse 96 95 96 Oximetry 11/15/17 11/15/17 11/15/17 00:06 00:10 00:20 Temperature Pulse Rate 99 H 95 H 93 H Pulse Rate [ From Monitor] Respiratory 19 20 18 Rate Blood Pressure 127/70 127/70 120/66 O2 Sat by Pulse 95 94 95 Oximetry 11/15/17 11/15/17 11/15/17 00:30 00:40 00:50 Temperature 98 F Pulse Rate 92 H 97 H 117 H Pulse Rate [ From Monitor] Respiratory 18 16 24 Rate Blood Pressure 119/65 119/65 117/68 O2 Sat by Pulse 100 96 99 Oximetry 11/15/17 11/15/17 11/15/17 01:00 01:10 01:20 Temperature Pulse Rate 114 H 98 H 97 H Pulse Rate [ From Monitor] Respiratory 21 19 18 Rate Blood Pressure 112/65 112/65 118/71 O2 Sat by Pulse 99 94 95 Oximetry 11/15/17 11/15/17 11/15/17 01:30 01:40 01:50 Temperature Pulse Rate 95 H 98 H 98 H Pulse Rate [ From Monitor] Respiratory 18 17 18 Rate Blood Pressure 120/70 120/70 122/66 O2 Sat by Pulse 96 96 Oximetry 11/15/17 11/15/17 11/15/17 02:00 02:10 02:20 Temperature Pulse Rate 94 H 96 H 95 H Pulse Rate [ From Monitor] Respiratory 17 17 17 Rate Blood Pressure 115/67 120/70 120/70 O2 Sat by Pulse 96 96 Oximetry 11/15/17 11/15/17 11/15/17 02:30 02:40 02:50 Temperature Pulse Rate 94 H 93 H 94 H Pulse Rate [ From Monitor] Respiratory 15 18 16 Rate Blood Pressure 120/70 120/70 120/70 O2 Sat by Pulse 97 96 96 Oximetry 11/15/17 11/15/17 11/15/17 03:00 03:10 03:20 Temperature Pulse Rate 94 H 93 H 93 H Pulse Rate [ From Monitor] Respiratory 17 16 16 Rate Blood Pressure 117/69 117/69 117/69 O2 Sat by Pulse 97 97 Oximetry 11/15/17 11/15/17 11/15/17 03:30 03:40 03:50 Temperature Pulse Rate 93 H 94 H 94 H Pulse Rate [ From Monitor] Respiratory 16 14 17 Rate Blood Pressure 117/69 117/69 117/69 O2 Sat by Pulse 97 96 95 Oximetry 11/15/17 11/15/17 11/15/17 04:00 04:10 04:20 Temperature 98.2 F Pulse Rate 99 H 89 91 H Pulse Rate [ 92 H From Monitor] Respiratory 17 13 13 Rate Blood Pressure 127/73 127/73 127/73 O2 Sat by Pulse 90 100 99 Oximetry 11/15/17 11/15/17 11/15/17 04:30 04:40 04:50 Temperature Pulse Rate 94 H 92 H 91 H Pulse Rate [ From Monitor] Respiratory 18 16 16 Rate Blood Pressure 127/73 127/73 127/73 O2 Sat by Pulse 97 97 97 Oximetry 11/15/17 11/15/17 11/15/17 05:00 05:10 05:20 Temperature Pulse Rate 92 H 92 H 92 H Pulse Rate [ From Monitor] Respiratory 18 17 17 Rate Blood Pressure 118/69 118/69 118/69 O2 Sat by Pulse 96 96 Oximetry 11/15/17 11/15/17 11/15/17 05:30 05:40 05:50 Temperature Pulse Rate 101 H 96 H 94 H Pulse Rate [ From Monitor] Respiratory 17 16 16 Rate Blood Pressure 118/69 118/69 118/69 O2 Sat by Pulse 96 96 97 Oximetry 11/15/17 11/15/17 11/15/17 06:00 06:10 06:20 Temperature Pulse Rate 108 H 93 H 96 H Pulse Rate [ From Monitor] Respiratory 15 12 15 Rate Blood Pressure 135/59 135/59 135/59 O2 Sat by Pulse 93 97 98 Oximetry 11/15/17 11/15/17 11/15/17 06:30 06:40 06:50 Temperature Pulse Rate 92 H 97 H 93 H Pulse Rate [ From Monitor] Respiratory 16 18 16 Rate Blood Pressure 135/59 135/59 135/59 O2 Sat by Pulse 97 96 97 Oximetry 11/15/17 11/15/17 11/15/17 07:00 07:10 07:20 Temperature Pulse Rate 97 H 98 H 92 H Pulse Rate [ From Monitor] Respiratory 20 16 15 Rate Blood Pressure 127/69 135/59 135/59 O2 Sat by Pulse 99 96 98 Oximetry 11/15/17 11/15/17 11/15/17 07:30 07:40 07:50 Temperature Pulse Rate 98 H 92 H 93 H Pulse Rate [ From Monitor] Respiratory 15 15 17 Rate Blood Pressure 135/59 135/59 135/59 O2 Sat by Pulse 96 96 96 Oximetry 11/15/17 11/15/17 11/15/17 08:00 08:10 08:20 Temperature 98.2 F Pulse Rate 85 101 H 97 H Pulse Rate [ 92 H From Monitor] Respiratory 16 18 16 Rate Blood Pressure 110/57 110/57 110/57 O2 Sat by Pulse 96 95 97 Oximetry 11/15/17 11/15/17 11/15/17 08:30 08:40 08:50 Temperature Pulse Rate 87 94 H 90 Pulse Rate [ From Monitor] Respiratory 16 20 16 Rate Blood Pressure 110/57 110/57 110/57 O2 Sat by Pulse 98 96 98 Oximetry 11/15/17 11/15/17 11/15/17 09:00 09:10 09:20 Temperature Pulse Rate 92 H 90 95 H Pulse Rate [ From Monitor] Respiratory 17 17 18 Rate Blood Pressure 124/65 124/65 124/65 O2 Sat by Pulse 97 97 96 Oximetry 11/15/17 11/15/17 11/15/17 09:30 09:40 09:42 Temperature Pulse Rate 94 H 92 H Pulse Rate [ 92 H From Monitor] Respiratory 19 15 20 Rate Blood Pressure 124/65 124/65 O2 Sat by Pulse 95 96 97 Oximetry CBC and BMP: 11/15/17 04:03 11/15/17 04:03 ABG, PT/INR, D-dimer: PT/INR, D-dimer PT 22.6 Sec. (12.2-14.9) H 11/13/17 Unknown INR 1.86 (0.87-1.13) H 11/13/17 Unknown Abnormal lab findings: Abnormal Labs 11/13/17 11/13/17 11/13/17 04:20 04:20 09:22 WBC 12.9 H RBC 2.73 L Hgb 6.2 L Hct 23.3 L MCH 25 L MCHC 29 L RDW 20.7 H Plt Count Lymph % (Auto) [place] % (Auto) [place] # Seg Neutrophils % 79.6 H Seg Neutrophils # 10.2 H PT INR Sodium Potassium Carbon Dioxide BUN Creatinine Glucose POC Glucose 231 H Lactic Acid Calcium Phosphorus Magnesium Total Bilirubin AST ALT Alkaline Phosphatase Total Protein Albumin Urine Creatinine Crossmatch See Detail 11/13/17 11/13/17 11/13/17 13:09 14:50 16:44 WBC 16.5 H RBC 2.78 L Hgb 7.5 L Hct 23.8 L MCH 27 L MCHC 31 L RDW 19.2 H Plt Count 109 L Lymph % (Auto) [place] % (Auto) [place] # Seg Neutrophils % Seg Neutrophils # PT INR Sodium 133 L Potassium 5.5 H Carbon Dioxide 19 L BUN 40 H Creatinine Glucose 161 H POC Glucose 155 H Lactic Acid Calcium 6.7 L Phosphorus Magnesium Total Bilirubin AST ALT Alkaline Phosphatase Total Protein Albumin Urine Creatinine Crossmatch 11/13/17 11/13/17 11/13/17 18:03 21:31 21:32 WBC RBC Hgb 7.3 L Hct 22.7 L MCH MCHC RDW Plt Count Lymph % (Auto) [place] % (Auto) [place] # Seg Neutrophils % Seg Neutrophils # PT INR Sodium Potassium Carbon Dioxide BUN Creatinine Glucose POC Glucose 132 H Lactic Acid Calcium Phosphorus Magnesium Total Bilirubin AST ALT Alkaline Phosphatase Total Protein Albumin Urine Creatinine 273.6 H Crossmatch 11/13/17 11/13/17 11/13/17 Unknown Unknown Unknown WBC RBC Hgb Hct MCH MCHC RDW Plt Count Lymph % (Auto) [place] % (Auto) [place] # Seg Neutrophils % Seg Neutrophils # PT 22.6 H INR 1.86 H Sodium 133 L Potassium 5.1 H Carbon Dioxide 13 L BUN 34 H Creatinine 1.8 H Glucose 240 H POC Glucose Lactic Acid 10.30 H* Calcium 7.3 L Phosphorus Magnesium Total Bilirubin AST 69 H ALT 69 H Alkaline Phosphatase 141 H Total Protein 5.7 L Albumin 2.1 L Urine Creatinine Crossmatch 11/14/17 11/14/17 11/14/17 04:45 04:45 09:09 WBC 13.7 H RBC 2.63 L Hgb 7.1 L Hct 22.2 L MCH 27 L MCHC RDW 19.5 H Plt Count 88 L Lymph % (Auto) 10.8 L [place] % (Auto) 8.4 H [place] # 1.2 H Seg Neutrophils % 80.0 H Seg Neutrophils # 11.0 H PT INR Sodium Potassium 5.1 H Carbon Dioxide 19 L BUN 40 H Creatinine Glucose 206 H POC Glucose 251 H Lactic Acid Calcium 6.5 L Phosphorus 2.30 L Magnesium 1.40 L Total Bilirubin 1.30 H AST 129 H ALT 123 H Alkaline Phosphatase Total Protein 4.7 L Albumin 1.8 L Urine Creatinine Crossmatch 11/14/17 11/14/17 11/14/17 10:32 14:20 16:31 WBC RBC Hgb Hct MCH MCHC RDW Plt Count Lymph % (Auto) [place] % (Auto) [place] # Seg Neutrophils % Seg Neutrophils # PT INR Sodium Potassium Carbon Dioxide BUN Creatinine Glucose POC Glucose Lactic Acid 2.20 H* 4.60 H* 3.70 H* Calcium Phosphorus Magnesium Total Bilirubin AST ALT Alkaline Phosphatase Total Protein Albumin Urine Creatinine Crossmatch 11/14/17 11/14/17 11/14/17 16:31 17:54 20:09 WBC RBC Hgb 6.9 L Hct 22.1 L MCH MCHC RDW Plt Count Lymph % (Auto) [place] % (Auto) [place] # Seg Neutrophils % Seg Neutrophils # PT INR Sodium Potassium Carbon Dioxide BUN Creatinine Glucose POC Glucose 320 H Lactic Acid 3.30 H* Calcium Phosphorus Magnesium Total Bilirubin AST ALT Alkaline Phosphatase Total Protein Albumin Urine Creatinine Crossmatch 11/14/17 11/14/17 11/14/17 22:01 22:50 22:50 WBC RBC Hgb 6.5 L Hct 19.6 L* MCH MCHC RDW Plt Count Lymph % (Auto) [place] % (Auto) [place] # Seg Neutrophils % Seg Neutrophils # PT INR Sodium Potassium Carbon Dioxide BUN Creatinine Glucose POC Glucose 269 H Lactic Acid 2.30 H* Calcium Phosphorus Magnesium Total Bilirubin AST ALT Alkaline Phosphatase Total Protein Albumin Urine Creatinine Crossmatch 11/15/17 11/15/17 11/15/17 04:03 04:03 08:12 WBC 12.4 H RBC 2.87 L Hgb 7.9 L Hct 24.2 L MCH 27 L MCHC RDW 18.7 H Plt Count 87 L Lymph % (Auto) 12.5 L [place] % (Auto) 11.3 H [place] # 1.4 H Seg Neutrophils % 75.6 H Seg Neutrophils # 9.4 H PT INR Sodium 132 L Potassium Carbon Dioxide BUN Creatinine 0.6 L Glucose 152 H POC Glucose 175 H Lactic Acid Calcium 6.4 L Phosphorus Magnesium Total Bilirubin AST ALT Alkaline Phosphatase Total Protein Albumin Urine Creatinine Crossmatch
[2017-11-15] MEDS ORDERED: CALCIUM GLUCONATE 2,000 MG in NACL 0.9% 100 ML IV ONE (11:00)
--- NOTE | 2017-11-15 11:16 | Gastroenterology Progress Note ---
Assessment and Plan GI: h/o liver disease s/p EGD w/ banding - doing well w/o further signs bleeding - ok to transfer to follow - continue Octreotide per protocol - follow h/h - hopefully can d/c from GI standpoint in am - will follow Subjective Date of service: 11/15/17 Interval history: - no signs bleeding overnight per staff Objective - Constitutional Vitals: Temp Pulse Resp BP Pulse Ox 98.2 F 92 H 20 124/65 97 11/15/17 08:00 11/15/17 09:42 11/15/17 09:42 11/15/17 09:40 11/15/17 09:42 General appearance: no acute distress - EENT Eyes: PERRL - Respiratory Respiratory: bilateral: CTA - Cardiovascular Rhythm: regular Heart Sounds: Present: S1 & S2 - Gastrointestinal General gastrointestinal: Present: soft, non-tender, non-distended - Labs CBC & Chem 7: 11/15/17 04:03 11/15/17 04:03 Labs: Laboratory Results - last 24 hr 11/13/17 11/14/17 11/14/17 04:20 14:20 16:31 WBC RBC Hgb Hct MCV MCH MCHC RDW Plt Count Lymph % (Auto) [place] % (Auto) Eos % (Auto) Baso % (Auto) Lymph # [place] # Eos # Baso # Seg Neutrophils % Seg Neutrophils # Sodium Potassium Chloride Carbon Dioxide Anion Gap BUN Creatinine Estimated GFR BUN/Creatinine Ratio Glucose POC Glucose Lactic Acid 4.60 H* 3.70 H* Calcium Phosphorus Magnesium Blood Type O POSITIVE Antibody Screen Negative Crossmatch See Detail 11/14/17 11/14/17 11/14/17 16:31 17:54 20:09 WBC RBC Hgb 6.9 L Hct 22.1 L MCV MCH MCHC RDW Plt Count Lymph % (Auto) [place] % (Auto) Eos % (Auto) Baso % (Auto) Lymph # [place] # Eos # Baso # Seg Neutrophils % Seg Neutrophils # Sodium Potassium Chloride Carbon Dioxide Anion Gap BUN Creatinine Estimated GFR BUN/Creatinine Ratio Glucose POC Glucose 320 H Lactic Acid 3.30 H* Calcium Phosphorus Magnesium Blood Type Antibody Screen Crossmatch 11/14/17 11/14/17 11/14/17 22:01 22:50 22:50 WBC RBC Hgb 6.5 L Hct 19.6 L* MCV MCH MCHC RDW Plt Count Lymph % (Auto) [place] % (Auto) Eos % (Auto) Baso % (Auto) Lymph # [place] # Eos # Baso # Seg Neutrophils % Seg Neutrophils # Sodium Potassium Chloride Carbon Dioxide Anion Gap BUN Creatinine Estimated GFR BUN/Creatinine Ratio Glucose POC Glucose 269 H Lactic Acid 2.30 H* Calcium Phosphorus Magnesium Blood Type Antibody Screen Crossmatch 11/15/17 11/15/17 11/15/17 04:03 04:03 04:03 WBC 12.4 H RBC 2.87 L Hgb 7.9 L Hct 24.2 L MCV 84 MCH 27 L MCHC 33 RDW 18.7 H Plt Count 87 L Lymph % (Auto) 12.5 L [place] % (Auto) 11.3 H Eos % (Auto) 0.1 Baso % (Auto) 0.5 Lymph # 1.6 [place] # 1.4 H Eos # 0.0 Baso # 0.1 Seg Neutrophils % 75.6 H Seg Neutrophils # 9.4 H Sodium 132 L Potassium 4.4 Chloride 100.1 Carbon Dioxide 22 Anion Gap 14 BUN 17 Creatinine 0.6 L Estimated GFR > 60 BUN/Creatinine Ratio 28 Glucose 152 H POC Glucose Lactic Acid 1.40 Calcium 6.4 L Phosphorus 2.80 D Magnesium 2.20 Blood Type Antibody Screen Crossmatch 11/15/17 08:12 WBC RBC Hgb Hct MCV MCH MCHC RDW Plt Count Lymph % (Auto) [place] % (Auto) Eos % (Auto) Baso % (Auto) Lymph # [place] # Eos # Baso # Seg Neutrophils % Seg Neutrophils # Sodium Potassium Chloride Carbon Dioxide Anion Gap BUN Creatinine Estimated GFR BUN/Creatinine Ratio Glucose POC Glucose 175 H Lactic Acid Calcium Phosphorus Magnesium Blood Type Antibody Screen Crossmatch
[2017-11-15] MEDS: FOLVITE PO SCH (11:34)
[2017-11-15] MEDS: FEOSOL PO SCH ×2 (11:34→22:44)
[2017-11-15] MEDS: PROTONIX IV SCH (11:35)
[2017-11-15] MEDS: VITAMIN B-1 100 MG in NACL 0.9% 50 ML IV SCH (11:35)
--- NOTE | 2017-11-15 15:22 | Progress Note ---
Assessment and Plan Acute GI bleed - likely from esophageal varices and gastric varices - s/p EGD emergently by GI on 03/15 and banding - EGD showed Large esophageal varices with 1 varix with a tiny ulcer at the esophagogastric junction. Large cluster of gastric varices at the cardia. Portal hypertension gastropathy. - We'll cont ot monitor H&H - Continue IV fluid hydration and packed RBC transfusion as needed for Hb <7 - We'll continue on octreotide drip for total 48h - plan to transfer to [facility] today Acute blood loss anemia - Hemoglobin was 6.5 on admission - s/p 2 units of packed RBC trnafusion - For now will monitor the patient in ICU - transfused one more unit on 11/14 as hb dropped to 6.9 Remote history of alcohol abuse - We'll cont on folate and thiamine Diabetes mellitus type 2 - continue sliding scale of insulin for now, A1c 5.2 Acute renal failure, could be vasomotor nephropathy, improved - Continue gentle hydration for now - Monitor renal function, avoid nephrotoxin, consulted nephrology Hyperkalemia, likely from renal failure - resolved with fluid Elevated LFT - Could be from history of alcohol abuse - Hepatitis panel ordered and was normal - hepatic Us showed possible rt hepatic mass, ordered MRI abdomen DVT prophylaxis, with SCD The high probability of a clinically significant, sudden or life threatening deterioration of the system(s) required my full and direct attention, intervention and personal management. The aggregate critical care time was [45] minutes. This time is in addition to time spent performing reported procedures but includes the following: [x] Data Review and interpretation [x] Patient assessment and monitoring of vital signs [x] Documentation [x] Medication orders and management Physical exam: GENERAL: well-developed and well-nourished male lying on bed appeared to be in no discomfort. HEENT: Normocephalic. Atraumatic. No conjunctival congestion or icterus. Patient has moist mucous membranes. NECK: Supple. Trachea midline. CHEST/LUNGS: Clear to auscultated bilaterally, breathing nonlabored. No wheezes crackles or rhonchi. HEART/CARDIOVASCULAR: Regular in rate and rhythm. S1 and S2 positive. ABDOMEN: Abdomen is soft, nontender. Patient has normal bowel sounds. SKIN: There is no rash. Warm and dry. NEURO: No focal motor deficit. Follows command. MUSCULOSKELETAL: No joint effusion or tenderness. EXTRIMITY: No edema, no cyanosis or clubbing. PSYCH: Cooperative. Subjective Date of service: 11/15/17 Interval history: Pt seen and examined no further Bloody vomiting episode Hb 7.9 today after 3rd unit of transfusion Objective - Constitutional Vitals: Vital Signs - 12hr 11/15/17 11/15/17 11/15/17 03:30 03:40 03:50 Temperature Pulse Rate 93 H 94 H 94 H Pulse Rate [ From Monitor] Respiratory 16 14 17 Rate Blood Pressure 117/69 117/69 117/69 O2 Sat by Pulse 97 96 95 Oximetry 11/15/17 11/15/17 11/15/17 04:00 04:10 04:20 Temperature 98.2 F Pulse Rate 99 H 89 91 H Pulse Rate [ 92 H From Monitor] Respiratory 17 13 13 Rate Blood Pressure 127/73 127/73 127/73 O2 Sat by Pulse 90 100 99 Oximetry 11/15/17 11/15/17 11/15/17 04:30 04:40 04:50 Temperature Pulse Rate 94 H 92 H 91 H Pulse Rate [ From Monitor] Respiratory 18 16 16 Rate Blood Pressure 127/73 127/73 127/73 O2 Sat by Pulse 97 97 97 Oximetry 11/15/17 11/15/17 11/15/17 05:00 05:10 05:20 Temperature Pulse Rate 92 H 92 H 92 H Pulse Rate [ From Monitor] Respiratory 18 17 17 Rate Blood Pressure 118/69 118/69 118/69 O2 Sat by Pulse 96 96 Oximetry 11/15/17 11/15/17 11/15/17 05:30 05:40 05:50 Temperature Pulse Rate 101 H 96 H 94 H Pulse Rate [ From Monitor] Respiratory 17 16 16 Rate Blood Pressure 118/69 118/69 118/69 O2 Sat by Pulse 96 96 97 Oximetry 11/15/17 11/15/17 11/15/17 06:00 06:10 06:20 Temperature Pulse Rate 108 H 93 H 96 H Pulse Rate [ From Monitor] Respiratory 15 12 15 Rate Blood Pressure 135/59 135/59 135/59 O2 Sat by Pulse 93 97 98 Oximetry 11/15/17 11/15/17 11/15/17 06:30 06:40 06:50 Temperature Pulse Rate 92 H 97 H 93 H Pulse Rate [ From Monitor] Respiratory 16 18 16 Rate Blood Pressure 135/59 135/59 135/59 O2 Sat by Pulse 97 96 97 Oximetry 11/15/17 11/15/17 11/15/17 07:00 07:10 07:20 Temperature Pulse Rate 97 H 98 H 92 H Pulse Rate [ From Monitor] Respiratory 20 16 15 Rate Blood Pressure 127/69 135/59 135/59 O2 Sat by Pulse 99 96 98 Oximetry 11/15/17 11/15/17 11/15/17 07:30 07:40 07:50 Temperature Pulse Rate 98 H 92 H 93 H Pulse Rate [ From Monitor] Respiratory 15 15 17 Rate Blood Pressure 135/59 135/59 135/59 O2 Sat by Pulse 96 96 96 Oximetry 11/15/17 11/15/17 11/15/17 08:00 08:10 08:20 Temperature 98.2 F Pulse Rate 85 101 H 97 H Pulse Rate [ 92 H From Monitor] Respiratory 16 18 16 Rate Blood Pressure 110/57 110/57 110/57 O2 Sat by Pulse 96 95 97 Oximetry 11/15/17 11/15/17 11/15/17 08:30 08:40 08:50 Temperature Pulse Rate 87 94 H 90 Pulse Rate [ From Monitor] Respiratory 16 20 16 Rate Blood Pressure 110/57 110/57 110/57 O2 Sat by Pulse 98 96 98 Oximetry 11/15/17 11/15/17 11/15/17 09:00 09:10 09:20 Temperature Pulse Rate 92 H 90 95 H Pulse Rate [ From Monitor] Respiratory 17 17 18 Rate Blood Pressure 124/65 124/65 124/65 O2 Sat by Pulse 97 97 96 Oximetry 11/15/17 11/15/17 11/15/17 09:30 09:40 09:42 Temperature Pulse Rate 94 H 92 H Pulse Rate [ 92 H From Monitor] Respiratory 19 15 20 Rate Blood Pressure 124/65 124/65 O2 Sat by Pulse 95 96 97 Oximetry 11/15/17 11/15/17 11/15/17 09:50 10:00 10:10 Temperature Pulse Rate 92 H 90 96 H Pulse Rate [ From Monitor] Respiratory 16 17 24 Rate Blood Pressure 124/65 108/68 108/68 O2 Sat by Pulse 89 99 97 Oximetry 11/15/17 11/15/17 11/15/17 10:20 10:30 10:40 Temperature Pulse Rate 103 H 87 91 H Pulse Rate [ From Monitor] Respiratory 31 H 15 15 Rate Blood Pressure 108/68 108/68 108/68 O2 Sat by Pulse 96 96 96 Oximetry 11/15/17 11/15/17 11/15/17 10:50 11:00 11:10 Temperature Pulse Rate 90 90 91 H Pulse Rate [ From Monitor] Respiratory 15 16 14 Rate Blood Pressure 108/68 116/65 116/65 O2 Sat by Pulse 99 98 Oximetry 11/15/17 11/15/17 11/15/17 11:20 11:30 11:40 Temperature Pulse Rate 88 100 H 93 H Pulse Rate [ From Monitor] Respiratory 18 19 17 Rate Blood Pressure 116/65 116/65 116/65 O2 Sat by Pulse 95 92 96 Oximetry 11/15/17 11/15/17 11/15/17 11:50 12:00 12:10 Temperature 98.2 F Pulse Rate 89 86 93 H Pulse Rate [ 92 H From Monitor] Respiratory 19 17 13 Rate Blood Pressure 116/65 107/72 107/72 O2 Sat by Pulse 95 97 98 Oximetry 11/15/17 11/15/17 11/15/17 12:20 12:30 12:40 Temperature Pulse Rate 85 88 88 Pulse Rate [ From Monitor] Respiratory 17 17 17 Rate Blood Pressure 107/72 107/72 107/72 O2 Sat by Pulse 99 96 98 Oximetry 11/15/17 11/15/17 12:50 13:00 Temperature Pulse Rate 87 89 Pulse Rate [ From Monitor] Respiratory 14 13 Rate Blood Pressure 107/72 116/67 O2 Sat by Pulse 98 99 Oximetry - Labs CBC & Chem 7: 11/15/17 04:03 11/15/17 04:03 Labs: Abnormal lab results 11/13/17 11/14/17 11/14/17 Range/Units 04:20 14:20 16:31 WBC (4.5-11.0) K/mm3 RBC (3.65-5.03) M/mm3 Hgb (11.8-15.2) gm/dl Hct (35.5-45.6) % MCH (28-32) pg RDW (13.2-15.2) % Plt Count (140-440) K/mm3 Lymph % (Auto) (13.4-35.0) % [place] % (Auto) (0.0-7.3) % [place] # (0.0-0.8) K/mm3 Seg Neutrophils % (40.0-70.0) % Seg Neutrophils # (1.8-7.7) K/mm3 Sodium (137-145) mmol/L Creatinine (0.8-1.5) mg/dL Glucose (75-100) mg/dL POC Glucose (70-105) Lactic Acid 4.60 H* 3.70 H* (0.7-2.0) mmol/L Calcium (8.4-10.2) mg/dL Crossmatch See Detail 11/14/17 11/14/17 11/14/17 Range/Units 16:31 17:54 20:09 WBC (4.5-11.0) K/mm3 RBC (3.65-5.03) M/mm3 Hgb 6.9 L (11.8-15.2) gm/dl Hct 22.1 L (35.5-45.6) % MCH (28-32) pg RDW (13.2-15.2) % Plt Count (140-440) K/mm3 Lymph % (Auto) (13.4-35.0) % [place] % (Auto) (0.0-7.3) % [place] # (0.0-0.8) K/mm3 Seg Neutrophils % (40.0-70.0) % Seg Neutrophils # (1.8-7.7) K/mm3 Sodium (137-145) mmol/L Creatinine (0.8-1.5) mg/dL Glucose (75-100) mg/dL POC Glucose 320 H (70-105) Lactic Acid 3.30 H* (0.7-2.0) mmol/L Calcium (8.4-10.2) mg/dL Crossmatch 11/14/17 11/14/17 11/14/17 Range/Units 22:01 22:50 22:50 WBC (4.5-11.0) K/mm3 RBC (3.65-5.03) M/mm3 Hgb 6.5 L (11.8-15.2) gm/dl Hct 19.6 L* (35.5-45.6) % MCH (28-32) pg RDW (13.2-15.2) % Plt Count (140-440) K/mm3 Lymph % (Auto) (13.4-35.0) % [place] % (Auto) (0.0-7.3) % [place] # (0.0-0.8) K/mm3 Seg Neutrophils % (40.0-70.0) % Seg Neutrophils # (1.8-7.7) K/mm3 Sodium (137-145) mmol/L Creatinine (0.8-1.5) mg/dL Glucose (75-100) mg/dL POC Glucose 269 H (70-105) Lactic Acid 2.30 H* (0.7-2.0) mmol/L Calcium (8.4-10.2) mg/dL Crossmatch 11/15/17 11/15/17 11/15/17 Range/Units 04:03 04:03 08:12 WBC 12.4 H (4.5-11.0) K/mm3 RBC 2.87 L (3.65-5.03) M/mm3 Hgb 7.9 L (11.8-15.2) gm/dl Hct 24.2 L (35.5-45.6) % MCH 27 L (28-32) pg RDW 18.7 H (13.2-15.2) % Plt Count 87 L (140-440) K/mm3 Lymph % (Auto) 12.5 L (13.4-35.0) % [place] % (Auto) 11.3 H (0.0-7.3) % [place] # 1.4 H (0.0-0.8) K/mm3 Seg Neutrophils % 75.6 H (40.0-70.0) % Seg Neutrophils # 9.4 H (1.8-7.7) K/mm3 Sodium 132 L (137-145) mmol/L Creatinine 0.6 L (0.8-1.5) mg/dL Glucose 152 H (75-100) mg/dL POC Glucose 175 H (70-105) Lactic Acid (0.7-2.0) mmol/L Calcium 6.4 L (8.4-10.2) mg/dL Crossmatch 11/15/17 Range/Units 12:18 WBC (4.5-11.0) K/mm3 RBC (3.65-5.03) M/mm3 Hgb (11.8-15.2) gm/dl Hct (35.5-45.6) % MCH (28-32) pg RDW (13.2-15.2) % Plt Count (140-440) K/mm3 Lymph % (Auto) (13.4-35.0) % [place] % (Auto) (0.0-7.3) % [place] # (0.0-0.8) K/mm3 Seg Neutrophils % (40.0-70.0) % Seg Neutrophils # (1.8-7.7) K/mm3 Sodium (137-145) mmol/L Creatinine (0.8-1.5) mg/dL Glucose (75-100) mg/dL POC Glucose 241 H (70-105) Lactic Acid (0.7-2.0) mmol/L Calcium (8.4-10.2) mg/dL Crossmatch
[2017-11-16] MEDS: PROTONIX IV SCH (00:23)
[2017-11-16] MEDS: VITAMIN K (ADULT ONLY) SUB-Q SCH (05:41)
[2017-11-16] MEDS: HumuLIN R SUB-Q SCH ×2 (07:00→12:30)
[2017-11-16 08:29] VITALS: BP 103/58
[2017-11-16] MEDS ORDERED: PROTONIX PO SCH (10:00)
[2017-11-16] MEDS: FEOSOL PO SCH (10:49)
[2017-11-16] MEDS: VITAMIN B-1 100 MG in NACL 0.9% 50 ML IV SCH (10:49)
[2017-11-16] MEDS: FOLVITE PO SCH (10:49)
--- NOTE | 2017-11-16 12:57 | Gastroenterology Progress Note ---
Assessment and Plan GI: UGI bleed due to varices s/p treatment - stable w/o GI complaints - will need low dose non-specfici b-jacqueline as outpt but would not start now given low BP - if h/h stable today ok to d/c from GI standpoint - will sign off, call if situation changes Subjective Date of service: 11/16/17 Interval history: - pt w/o signs bleeding overnight Objective - Constitutional Vitals: Temp Pulse Resp BP Pulse Ox 98.8 F 80 18 103/58 98 11/16/17 07:59 11/16/17 07:59 11/16/17 07:59 11/16/17 07:59 11/16/17 07:59 General appearance: no acute distress - EENT Eyes: PERRL - Respiratory Respiratory: bilateral: CTA - Cardiovascular Rhythm: regular Heart Sounds: Present: S1 & S2 - Gastrointestinal General gastrointestinal: Present: soft, non-tender, non-distended - Labs CBC & Chem 7: 11/15/17 04:03 11/15/17 04:03 Labs: Laboratory Results - last 24 hr 11/15/17 11/15/17 11/15/17 12:18 16:22 21:55 POC Glucose 241 H 279 H 152 H 11/16/17 11/16/17 06:50 11:02 POC Glucose 141 H 183 H
--- NOTE | 2017-11-16 13:19 | Magnetic Resonance Report ---
MRI ABDOMEN WITHOUT AND WITH CONTRAST : 11/16/17 10:44:00 CLINICAL: Hepatic mass by ultrasound. COMPARISON :11/15/17 abdominal ultrasound. TECHNIQUE: Axial T1 in phase and opposed phase, coronal and axial T2 and axial T2 fat sat sequences plus multiphase postcontrast T1 fat sat sequences plus thin and thick slab MRCP sequences on a 1.5 Patricia magnet. 15.0 cc of Multihance was injected intravenously for the contrast portion of the exam and consent was obtained prior to the administration of the contrast. FINDINGS: A poor quality examination with inadequate breath holding. This is likely related to a language barrier and poor communication. The liver is small and irregular with deep fissures. The coronal T2 2-D FIESTA sequence is the technically superior sequence with homogeneous hepatic signal and there is no liver mass identified on this sequence. The post contrast sequences are technically inadequate because of motion. The gallbladder is distended. No evidence of cholelithiasis or choledocholithiasis. There is a large volume of ascites. The spleen is enlarged. The pancreas is poorly imaged. The stomach, large and small bowel are unremarkable. IMPRESSION: Hepatic cirrhosis and portal hypertension. The study is technically inadequate for excluding hepatic mass because of motion on the post contrast sequences.
--- NOTE | 2017-11-16 14:00 | Discharge Summary ---
Providers - Providers Date of Admission: 11/13/17 05:41 Date of discharge: 11/16/17 Attending physician: ECTOR WHALEY 11/13/17 06:23 Consult to Physician [CONS] Routine Comment: Consulting Provider: BRITT BOGGS Physician Instructions: Reason For Exam: CCU Consult to Physician [CONS] Stat Comment: Dr. Garcia (er dr) spoke with Dr. Lockwood Consulting Provider: JOSE MARTIN LOCKWOOD Physician Instructions: Reason For Exam: active GI bleed 11/13/17 09:26 Consult to Physician [CONS] Routine Comment: Consulting Provider: BREANNE LUNSFORD Physician Instructions: Reason For Exam: KARLOS Primary care physician: LETICIA BLANTON Hospitalization Condition: Stable Hospital course: The patient is a 37 year old male with a history of DM who presented to the ER with new onset emesis of BRB starting this AM. He denied any antecedent history of PUD, liver disease, prior bleeding, alcohol use, abdominal pain or weight loss. He was hypotensive on presentation and found to have a Hgb of 6.2, INR of 1.8 with mildly elevated LFTs. Patient was transfused 2 units packed RBC, GI was consulted and had emergent EGD which revealed large esophageal and gastric basis which were treated with banding. His H&H then monitored and he declined additional 1 unit of packed RBC transfusion. He was placed on octreotide drip for 48 hours. His H&H remained stable. His hepatitis panel was negative, hepatic ultrasound showed cirrhosis and possible right hepatic months. MRI of the abdomen obtained but no hepatic lesion was found. GI cleared the patient for discharge. Patient was discharged home in stable condition and recommended to follow-up with his PCP in one week. Discharge diagnosis and management: Acute GI bleed - likely from esophageal varices and gastric varices - s/p EGD emergently by GI on 03/15 and banding - EGD showed Large esophageal varices with 1 varix with a tiny ulcer at the esophagogastric junction. Large cluster of gastric varices at the cardia. Portal hypertension gastropathy. - Placed on octreotide drip for total 48h - counselled for not to consume alcohol and f/u with PCP at [facility] [place] Acute blood loss anemia - Hemoglobin was 6.5 on admission and s/p emergent 2 units of packed RBC trnafusion - transfused one more unit of PRBC on 11/14 as hb dropped to 6.9 Remote history of alcohol abuse - Placed on folate and thiamine Diabetes mellitus type 2 - Managed with sliding scale of insulin, diabetic diet, A1c was 5.2 Acute renal failure, could be vasomotor nephropathy, resolved - Improved with gentle hydration, Monitored renal function, avoided nephrotoxin , consulted nephrology Hyperkalemia, likely from renal failure - resolved with fluid Elevated LFT, likely from cirrhosis - Could be from history of alcohol abuse - Hepatitis panel ordered and was normal - hepatic Us showed possible rt hepatic mass, ordered MRI abdomen and was unremarkable DVT prophylaxis, with SCD Physical exam: GENERAL: well-developed and well-nourished male lying on bed appeared to be in no discomfort. HEENT: Normocephalic. Atraumatic. No conjunctival congestion or icterus. Patient has moist mucous membranes. NECK: Supple. Trachea midline. CHEST/LUNGS: Clear to auscultated bilaterally, breathing nonlabored. No wheezes crackles or rhonchi. HEART/CARDIOVASCULAR: Regular in rate and rhythm. S1 and S2 positive. ABDOMEN: Abdomen is soft, nontender. Patient has normal bowel sounds. SKIN: There is no rash. Warm and dry. NEURO: No focal motor deficit. Follows command. MUSCULOSKELETAL: No joint effusion or tenderness. EXTRIMITY: No edema, no cyanosis or clubbing. PSYCH: Cooperative. Disposition: DC-01 TO HOME OR SELFCARE Time spent for discharge: 32 minutes Core Measure Documentation - Palliative Care Palliative Care/ Comfort Measures: Not Applicable - Core Measures Any of the following diagnoses?: none Exam - Constitutional Vitals: Temp Pulse Resp BP Pulse Ox 98.8 F 80 18 103/58 98 11/16/17 07:59 11/16/17 07:59 11/16/17 07:59 11/16/17 07:59 11/16/17 07:59 Plan Activity: advance as tolerated Weight Bearing Status: Weight Bear as Tolerated Diet: low fat, low salt Additional Instructions: f/u with PCP at [place] in one week. Can go back to work after one week. Follow up with: LETICIA BLANTON MD [Primary Care Provider] - 3-5 Days Forms: Accompanied Note, Work/School Release Form Prescriptions: Ferrous Sulfate [Feosol 325 MG tab] 325 mg PO BID #60 tablet Folic Acid [Folvite] 1 mg PO QDAY #30 tablet Pantoprazole [Protonix TAB] 40 mg PO QDAY #30 tablet Thiamine [Vitamin B-1] 100 mg PO QDAY #14 tablet
[2017-11-16 14:41] LABS: Basophils % (Auto) 0.8 % (0.0-1.8); Eosinophils # (Auto) 0.1 K/mm3 (0.0-0.4); Eosinophils % (Auto) 2.6 % (0.0-4.3); Hemoglobin 7.4 gm/dl (11.8-15.2); Lymphocytes # (Auto) 1.2 K/mm3 (1.2-5.4); Lymphocytes % (Auto) 21.1 % (13.4-35.0); Mean Corpuscular HGB Conc 32 % (32-34); Mean Corpuscular Hemoglobin 27 pg (28-32); Mean Corpuscular Volume 84 fl (84-94); Monocytes # (Auto) 0.7 K/mm3 (0.0-0.8); Monocytes % (Auto) 12.7 % (0.0-7.3); Red Blood Count 2.72 M/mm3 (3.65-5.03); Red Cell Distribution Width 19.1 % (13.2-15.2)
[2017-11-16 14:46] LABS: Platelet Count 77 K/mm3 (140-440)
[2017-11-16 14:55] LABS: BUN/Creatinine Ratio 28; Blood Urea Nitrogen 17 mg/dL (9-20); Calcium 6.7 mg/dL (8.4-10.2); Hemolysis Index 2
[2017-11-17] MEDS ORDERED: VITAMIN B-1 PO SCH (10:00)
== END 2017-11-16 15:30 | disposition home or self-care (01) | DRG 368 ==
LOC: ED 04:08 → CC1 05:41 → 4A 11-15 18:49
PROVIDERS: ADMIT Internal Medicine; ATTEND Internal Medicine
PROC: 06L38CZ Occlusion of Esophageal Vein with Extraluminal Device, Via Natural or Artificial Opening Endoscopic (ICD-10-PCS; principal; 2017-11-13)
PROC: 30233N1 Transfusion of Nonautologous Red Blood Cells into Peripheral Vein, Percutaneous Approach (ICD-10-PCS; 2017-11-14)
DX: I85.01 Esophageal varices with bleeding (principal); N17.0 Acute kidney failure with tubular necrosis; K22.10 Ulcer of esophagus without bleeding; D68.9 Coagulation defect, unspecified; D62 Acute posthemorrhagic anemia; E87.2 Acidosis; I95.89 Other hypotension; E87.6 Hypokalemia; K31.9 Disease of stomach and duodenum, unspecified; K25.9 Gastric ulcer, unspecified as acute or chronic, without hemorrhage or perforation; I86.4 Gastric varices; E11.9 Type 2 diabetes mellitus without complications; Z82.49 Family history of ischemic heart disease and other diseases of the circulatory system; Z83.3 Family history of diabetes mellitus
CPT/HCPCS: 36415; 36430; 71045; 74183; 76700; 76770; 80048; 80053; 81001; 82140; 82570; 82962; 83036; 83690; 83735; 84100; 84300; 85014; 85018; 85025; 85027; 85610; 85730; 86705; 86706; 86803; 86850; 86900; 86901; 86920; 93970; 94640; 96365; 96366; 96368; 96372; 96375; A9577; C9113; J0330; J0610; J1815; J2001; J2250; J2354; J2405; J2704; J2710; J3010; J3411; J3430; J3475; J7030; J7040; J7042; J7070; P9016